=== PATIENT | female | born 1960 | race Caucasian/White ===

== ENCOUNTER 2017-07-09 12:04 | Observation (INO) | payer OTHER ==
[2017-07-09 14:00] VITALS: BMI 34.0
[2017-07-09 14:44] LABS: Troponin I Less than 0.010 ng/mL (< 0.028)
[2017-07-09] MEDS ORDERED: Acetaminophen 325 MG TAB PO PRN (16:15)
[2017-07-09] MEDS ORDERED: Enoxaparin Sodium 40 MG/0.4 ML SYRINGE SC SCH (16:15)
[2017-07-09] MEDS ORDERED: Ondansetron ODT 4 MG TAB PO PRN (16:15)
[2017-07-09] MEDS ORDERED: HYDROcodone/Acetaminophen 10/325 mg Tablet PO PRN (16:15)
[2017-07-09] MEDS ORDERED: HYDROcodone/Acetaminophen 5/325 mg Tablet PO PRN (16:15)
[2017-07-09 17:29] LABS: Troponin I Less than 0.010 ng/mL (< 0.028)
[2017-07-09] MEDS ORDERED: Communication Order-Pharmacy FS SCH (19:00)
[2017-07-09] MEDS: Famotidine 20 MG TAB PO SCH (20:01)
[2017-07-09] MEDS: Carvedilol 3.125 MG TAB PO SCH (20:02)
[2017-07-09] MEDS ORDERED: Clopidogrel Bisulfate 75 MG TAB PO SCH (21:00)
[2017-07-09] MEDS ORDERED: Levothyroxine Sodium 125 MCG TAB PO SCH (21:00)
[2017-07-09] MEDS ORDERED: Doxylamine 25 MG TAB PO SCH (21:00)
[2017-07-09] MEDS: Nitroglycerin 2% Ointment 1 INCH/1 GM Packet TOP SCH (22:06)
--- NOTE | 2017-07-10 00:08 | CON ---
DATE OF ADMISSION: 07/09/2017 DATE OF CONSULTATION: 07/09/2017 INDICATION FOR CONSULTATION: A 56-year-old female with history of known coronary artery disease and multiple stents placed back from 1996 in the right coronary artery as well as left circumflex. She h as had myocardial infarction in the past. Recently, she has been noticing increased frequency of chely st pain, which has been relieved by nitroglycerin for the most part. Yesterday, during the night, trudy caro had chest pain. She also had nausea, vomiting, and diarrhea. She had left arm pain, left neck laisha n. She took nitroglycerin with some relief, but still continued to have pain, presented to the emerg ency room at [facility] and was evaluated there. Cardiac enzymes are unremarkable. EKG did not show any acute changes. She was transferred to our facility since her kosher inspector is here and I be lieve her insurance in this hospital. At this time, she is pain free. She also said last night, she had a near syncopal episode after having the nausea, vomiting, diarrhea, and chest discomfort. Prev iously, her last cardiac catheterization was here in 08/2015, which showed plaque in left main, left anterior descending artery had 30% proximal stenosis, diagonal branches 50% stenosis of first and sec ond obtuse marginal branches 75%,ostial stenosis was less than 2 mm in diameter, and the third obtuse marginal branch with 30% to 40% stenosis. She had multiple stents in the right coronary for the pr oximal and distal areas. She also had a stent placed in the left circumflex. Ejection fraction was 60% to 65%. Otherwise, she has been taking her medications that she has been doing otherwise relativ mary well. She has hypertension, hypercholesterolemia. She also has a remote history of tobacco abus e and no longer smokes. PAST MEDICAL AND SURGICAL HISTORY: Significant for coronary artery disease as noted above with stent s to the left circumflex and right coronary artery myocardial infarction. She has hypothyroidism. S he has had a gastric sleeve procedure in 09/2015. She had a hysterectomy, appendectomy, tonsils, des noidectomy, history of anxiety. SOCIAL HISTORY: She is . She stopped smoking in the past. She has children who are alive an d well. FAMILY HISTORY: Noncontributory. ALLERGIES: She is allergic to CLINDAMYCIN, PENICILLIN, SULFONAMIDES. MEDICATIONS: Tylenol, Elavil, aspirin, Coreg, Plavix, Unisom, Lovenox subcutaneous, Pepcid 20 mg b.i .d., Imdur, levothyroxine, nitroglycerin paste, and Ranexa as well as Crestor. REVIEW OF SYSTEMS: She recently had an upper respiratory tract infection, she has recovered from thi s. She complains of nausea, vomiting, diarrhea. Otherwise, a 12-point review of systems is unremark able except what was noted in the history of present illness. PHYSICAL EXAMINATION: GENERAL: Reveals a well-developed, well-nourished female, in no acute distress. VITAL SIGNS: Blood pressure 106/56, heart rate 63 and regular, respiratory rate 16, O2 saturation 97 %. HEENT: Shows head to be normocephalic and atraumatic. Carotid pulses are present. There were no br uits noted. No JVD. The thyroid is not enlarged. Oral mucosa was pink and moist. CHEST: Clear to auscultation with no rales, rhonchi, or wheezing. CARDIOVASCULAR: Reveals a regular rate and rhythm. There is a normal S1, S2. There is no significa nt S3, S4 noted. She has a very soft systolic murmur in the lower sternal border, most likely compat ible with some mild tricuspid valve regurgitation. ABDOMEN: Shows obesity with positive bowel sounds. No organomegaly or masses are noted. Femoral pu lses are present. EXTREMITIES: Showed no clubbing, cyanosis, or edema. Pedal pulses are also present. NEUROLOGIC: She appears to be fully intact. SKIN: Warm and dry. LABORATORY AND DIAGNOSTIC DATA: Her EKG shows normal sinus rhythm with no acute findings. She does have evidence of a possible old inferior myocardial infarction with T-wave inversions, but no other a cute changes were noted. Her troponin Is have been negative. Her creatinine 0.78. Blood sugar was 130, hemoglobin 13.4, potassium was 4.2. IMPRESSION: 1. Unstable angina type symptoms in a 56-year-old female with known coronary artery disease who has undergone multiple angioplasties and stent placements in the past. It would be best to proceed her c ase to undergo repeat cardiac catheterization for evaluation of the stents and to rule out evidence o f progression of coronary artery disease. I did explain the procedure and the risks to her to includ e bleeding, infection, possibly a myocardial infarction, cerebrovascular accident, renal insufficienc y, allergic contrast reaction, and even the possibility of . She understands and agrees to proc eed. We will plan for cardiac catheterization tomorrow morning. 2. History of hypertension. This is under very good control at this time. We actually had to decre ase her medications in the past due to hypotension. At this time, we may need to further addresses m edications, may need to decrease the dose of her Imdur or her Coreg further. 3. Obesity. She has undergone a gastric sleeve procedure. She has lost about 70 pounds I think but she has gained back few she said, about 20 pounds she has gained back, so overall, she has been doin g quite well. 4. Hypercholesterolemia. Her last laboratory data shows LDL level not to be significantly elevated, but is still not under the suggested range of 70 for the LDL. Further care of the patient suggestio ns will be determined after we review the cardiac catheterization tomorrow.
[2017-07-10 01:04] LABS: Troponin I Less than 0.010 ng/mL (< 0.028)
[2017-07-10] MEDS: Famotidine 20 MG TAB PO SCH (05:22)
[2017-07-10] MEDS: Carvedilol 3.125 MG TAB PO SCH (05:22)
[2017-07-10] MEDS: Nitroglycerin 2% Ointment 1 INCH/1 GM Packet TOP SCH ×3 (05:22→14:45)
[2017-07-10 05:38] LABS: #Eosinphils 0.2 thou/uL (0.0-0.7); #Lymphocytes 1.1 thou/uL (1.20-3.40); #Monocytes 0.3 thou/uL (0.11-0.59); #Neutrophils 3.6 thou/uL (1.40-6.50); %Basophils 0.5 % (0.0-1.0); %Eosinophils 3.3 % (0.0-10.0); %Lymphocytes 21.2 % (21.0-51.0); %Monocytes 5.7 % (0.0-10.0); Mean Platelet Volume 8.1 fL (7.4-10.4); Red Blood Cell (RBC) Count 3.85 mill/uL (4.20-5.40); White Blood Cell (WBC) Count 5.2 thou/uL (4.8-10.8)
[2017-07-10 06:24] LABS: Anion Gap 12 mmol/L (10-20); BUN (Urea Nitrogen) 9 mg/dL (9.8-20.1); Calc. Creatinine Clearance 128 mL/min (70-130); Calcium 8.3 mg/dL (7.8-10.44); Carbon Dioxide 20 mmol/L (22-29); Chloride 111 mmol/L (98-107); Estimated GFR-MDRD 83
[2017-07-10] MEDS ORDERED: Heparin 1000 UNIT/NS 500ML(OR) 500 ML ONE ×2 (06:46→08:41)
[2017-07-10] MEDS ORDERED: Nitroglycerin 100MG/250ML BOT 250 ML ONE (07:22)
[2017-07-10] MEDS ORDERED: Heparin 10,000 UNITS/1 ML VIAL ONE (07:22)
[2017-07-10] MEDS ORDERED: Verapamil 5 MG/2 ML VIAL ONE (07:22)
[2017-07-10] MEDS ORDERED: Midazolam HCl 2 mg/2 ml Vial ONE ×3 (07:33→09:00)
[2017-07-10] MEDS ORDERED: Bivalirudin 250 MG VIAL ONE ×2 (08:06→09:00)
[2017-07-10] MEDS ORDERED: Clopidogrel Bisulfate 300 MG TAB ONE (08:06)
[2017-07-10] MEDS ORDERED: Fentanyl 100 MCG/2 ML VIAL ONE (08:06)
[2017-07-10 08:56] LABS: Troponin I Less than 0.010 ng/mL (< 0.028)
[2017-07-10] MEDS ORDERED: Aspirin 325 MG TAB PO SCH (09:00)
[2017-07-10] MEDS ORDERED: Nitroglycerin 0.4 MG TAB (25 Tab Bottle) SL PRN (09:41)
[2017-07-10] MEDS ORDERED: Sodium Chloride 0.9% 200 ML IV SCH (09:41)
[2017-07-10] MEDS ORDERED: Acetaminophen/Codeine 30-300mg Tablet PO PRN ×2 (09:41)
[2017-07-10] MEDS ORDERED: traMADol HCl 50 MG TAB PO PRN (09:41)
--- NOTE | 2017-07-10 10:41 | PDOC.PN ---
- Subjective Encounter Start Date: 07/10/17 Encounter Start Time: 10:20 -: old records requested/rev Pt seen, case discussed with both Dr Tee and Dr Gross. Pt seen by Dr aJckson last evening, biomarkers remain negative. Pt taken to the paving and surfacing labourer this morning, had a tight ostial lesion on the RCA, and diffuse LAD disease and some diffuse disease at the RCA distal bifurcation. Shes had asked Dr Gross to consult. I have spoken with him, and he prefers to hold plavix, conitnue baby ASA and do surgery next week sometime. Will defer to us whether she stay shere or goes home first. No F/c, [place] N/V/D/c, no cough. no EKG changes with pain while in the paving and surfacing labourer. Pt only complaining of back pain and hunger at present 10 point ROS performed and neg for all except as per HPI - Objective Resuscitation Status: Resuscitation Status FULL:Full Resuscitation MAR Reviewed: Yes Vital Signs & Weight: Vital Signs (12 hours) Temp Pulse Resp BP Pulse Ox 07/10/17 09:58 98.0 F 62 16 07/10/17 09:25 98.0 F 62 16 130/63 98 07/10/17 05:25 98.8 F 65 18 125/68 95 07/09/17 23:12 98.6 F 61 14 117/64 95 Weight Weight 210 lb 11.2 oz I&O: 07/09/17 07/10/17 07/11/17 06:59 06:59 06:59 Intake Total 240 Balance 240 Result Diagrams: 07/10/17 05:22 07/10/17 05:22 Radiology Reviewed by me: Yes EKG Reviewed by me: Yes Phys Exam - Physical Examination Constitutional: NAD HEENT: PERRLA, moist MMs, sclera anicteric, oral pharynx no lesions Neck: no nodes, no JVD, supple, full ROM Respiratory: no wheezing, no rales, no rhonchi, clear to auscultation bilateral Cardiovascular: RRR, no significant murmur, no rub Gastrointestinal: soft, non-tender, no distention, positive bowel sounds Musculoskeletal: no edema, pulses present Neurological: non-focal, normal sensation, moves all 4 limbs Lymphatic: no nodes Psychiatric: normal affect, A&O x 3 Skin: no rash, normal turgor, cap refill <2 seconds Dx/Plan (1) ACS (acute coronary syndrome) Code(s): I24.9 - ACUTE ISCHEMIC HEART DISEASE, UNSPECIFIED Status: Acute Comment: diffuse multivessel disease. No urgent need for CABG. Will feed, hold plavix, followup on cardiology and CT surgery recommendations (2) HTN (hypertension) Code(s): I10 - ESSENTIAL (PRIMARY) HYPERTENSION Status: Acute Qualifiers: Hypertension type: essential hypertension Qualified Code(s): I10 - Essential (primary) hypertension (3) Hypothyroid Code(s): E03.9 - HYPOTHYROIDISM, UNSPECIFIED Status: Acute Qualifiers: Hypothyroidism type: acquired Qualified Code(s): E03.9 - Hypothyroidism, unspecified (4) Fatigue Code(s): R53.83 - OTHER FATIGUE Status: Acute Qualifiers: Fatigue type: other Qualified Code(s): R53.83 - Other fatigue (5) HLD (hyperlipidemia) Code(s): E78.5 - HYPERLIPIDEMIA, UNSPECIFIED Status: Acute Qualifiers: Hyperlipidemia type: unspecified Qualified Code(s): E78.5 - Hyperlipidemia , unspecified (6) Coronary artery disease Code(s): I25.10 - ATHSCL HEART DISEASE OF [place] CORONARY ARTERY W/O ANG PCTRS Status: Acute Qualifiers: Coronary Disease-Associated Artery/Lesion type: [place] artery [place] vs. transplanted heart: [place] heart Associated angina: with unstable angina Qualified Code(s): I25.110 - Atherosclerotic heart disease of [place] coronary artery with unstable angina pectoris - Plan cont current plan of care, plan discussed w/ family * .
[2017-07-10] MEDS ORDERED: Morphine PF 1 MG/ML SYR IVP PRN (10:51)
[2017-07-10 11:24] VITALS: BP 145/67; TEMP 98.4
--- NOTE | 2017-07-10 13:11 | HP ---
DATE OF ADMISSION: 07/09/2017 TIME OF SERVICE: 16:23 CHIEF COMPLAINT: Chest pain and weakness. HISTORY OF PRESENT ILLNESS: Ms. Bauer is a pleasant 56-year-old female with history of coronary art [place]il[place] disease with extensive percutaneous interventions, hypertension, hypothyroidism, and hyperlipidem ia. She presented to an outside Emergency Department via EMS with complaints of chest pain and extre me fatigue. She states that the pain initially started in the sternal area which is fairly typical. At this time , though it extended up into her left neck and arm which is not typical for previous heart issues. S he took nitroglycerin sublingual x1 which seemed to help and she was able to go to sleep again. This started sometime around 10:30 or 11:00 p.m. at night on 07/08/2017. She woke up again around 3 a.m. with more chest pain. She had 3 episodes of diarrhea in the precedin g 24 hours, but had increasing fatigue and malaise for about 2-3 days prior to presentation. Startin g around 3 a.m., she felt extensively more fatigued and was concerned that she might be having anothe r heart problem. So she decided to come to the Emergency Department for evaluation. She was given a nother sublingual nitroglycerin which almost completely raised her pain. On arrival there at [facility], she had a negative EKG by report and negative biomarkers. She was subsequently transferred here because her implementation coordinator is to see her. On arrival to our floor, she is still having some dull aching in her chest. She denies any palpitati ons, nausea or vomiting at present. She has had no recent diarrhea. No sweats. PAST MEDICAL HISTORY: 1. Hypothyroidism. 2. Hypertension. 3. Coronary artery disease. 4. Hyperlipidemia. PAST SURGICAL HISTORY: Include, 1. Gastric sleeve procedure in 09/[address] Yañez. 2. Achilles tendon repair 07/2015 with a fall and reinjury and subsequent repair in 08/2015. 3. TAHBSO and appendectomy in 1980. HOME MEDICATIONS: 1. Aspirin 81 mg daily. 2. Amitriptyline 150 mg p.o. at bedtime. 3. Coreg 3.125 mg p.o. b.i.d. 4. Plavix 75 mg daily. 5. Doxylamine 25 mg as needed. 6. Isosorbide mononitrate 30 mg p.o. daily. 7. Ranexa 500 mg daily. 8. Levothyroxine 125 mcg daily. 9. Ibuprofen as needed. 10. Pseudoephedrine as needed. 11. Amlodipine 5 mg p.o. daily. ALLERGIES: SULFA causes a rash. PENICILLIN causes a rash as a child. Last echocardiogram, I think was around two years ago. She has been seeing an outside implementation coordinator priscilla holliday at [facility] and he wants to put a special bifurcated stent into her distal bifurcation of her RCA, however, she has been unable to follow up with him and has been seeing Dr. Jackson instead. FAMILY HISTORY: Dad at age 30 from a heart attack. Her mom is alive at 77 with only hypertensi on. She has a sister who is alive and well. 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 Her sister is a nurs e at [employer] here in [place]. Her sister name is Tahmina Hanks and is her medical d ecision maker should patient become unable to. We discussed advanced directives and she has no forma l document, does wish to be a FULL CODE. She is a former tobacco user. Quit smoking 15 years ago after an approximately 33-[id number] history and one pack per day for 30 years. She has no alcohol, no IV drugs. REVIEW OF SYSTEMS: A 10-point review of systems was performed, negative for all other systems except as stated as per HPI. PHYSICAL EXAMINATION: VITAL SIGNS: Temperature 98.6, pulse 61, blood pressure 117/64, respiratory rate 14, satting 95% on room air. GENERAL: She is awake. She is alert. She is oriented x3. She is a well-developed, obese white fem herminia, appears in no acute distress. HEENT: Normocephalic, atraumatic. Pupils are equal and reactive bilaterally. Mucous membranes are moist without visible lesions or thrush. NECK: Supple. She has no lymphadenopathy, no JVD, no thyromegaly. LUNGS: Clear to auscultation bilaterally without wheezes, rales or rhonchi. CARDIOVASCULAR: Normal S1 and S2. There is no S3 or S4. There are no murmurs, no rubs. ABDOMEN: Soft, is obese, is nontender, nondistended. She has no masses or organomegaly. Prior surg ical incisions are well healed. EXTREMITIES: Showed no cyanosis, no clubbing. She has trace bipedal edema. It is nonpitting. SKIN: Warm, moist, and well perfused. No rashes, lesions or varicosities. MUSCULOSKELETAL: Exam shows shoulders, hips, elbows and knees to be normal to inspection. She has n o crepitus. She has no palpable joint effusions and no erythema or tenderness. NEUROLOGIC: Cranial nerves II-XII are grossly intact. She has no focal neurologic deficit. Normal speech pattern and 5/5 strength in all 4 extremities. Reflexes were not tested. LABORATORY DATA AND IMAGING: Laboratory evaluation from outside facility showed normal CMP. Creatin ine 0.78, white blood cell count 6.7, hemoglobin 13.4, hematocrit of 41.6, platelet count 238,000 and a normal differential. Troponin I was 0.00. Chest x-ray showed no acute cardiopulmonary disease. ASSESSMENT AND PLAN: 1. Chest pain: Patient does have a history of coronary disease. She tells me in passing that prior stress test has not caught any significant coronary lesion that she subsequently had stented. We wi ll ask Dr. Jackson to evaluate the patient in the morning, we will get serial cardiac biomarkers, place her on nitro paste, continue beta reba, continuous oxygen, and aspirin 325 mg daily. We will foll ow by Cardiology recommendations. 2. Hypothyroidism: We will continue levothyroxine. 3. Essential hypertension. We will continue home medications. 4. History of coronary artery disease as above. 5. Hyperlipidemia. Patient is not on any mention of antihyperlipidemic. Would likely to be on some kind of Lipitor in the near future. 6. Malaise/fatigue: Etiology is not clear. We will continue to hydrate her overnight gently and we will get echocardiogram and we will also recheck labs in the morning.
--- NOTE | 2017-07-10 16:50 | DIS ---
DATE OF ADMISSION: 07/09/2017 DATE OF DISCHARGE: 07/10/2017 PRIMARY CARE PHYSICIAN: Korey Layton M.D. DISCHARGE DIAGNOSES: 1. Acute coronary syndrome. 2. Diffuse multivessel coronary artery disease with unstable angina. 3. Hypertension. 4. Hyperlipidemia. 5. Obesity. 6. Malaise and fatigue. 7. Hypothyroidism. CONSULTATIONS: 1. Dr. Jackson with Cardiology. 2. Dr. Gross with Cardiothoracic Surgery. PROCEDURES: 1. Percutaneous transluminal coronary angiography which showed diffuse multivessel disease including a right coronary OM2 ostial lesion, diffuse distal RCA disease of the bifurcation, some circumflex d isease and diffuse LAD disease. HOSPITAL COURSE: Ms. Bauer is a 56-year-old female whom I placed in observation yesterday. She pre sented to an outside Emergency Department with complaints of chest discomfort and fatigue. She was t ransferred here to see her Cardiology team. HOSPITAL COURSE: The patient was seen and examined. On admission, she was placed in observation sta tus, serial cardiac biomarkers were obtained, which were negative, Cardiology saw her and took her fo r cardiac catheterization this morning which showed diffuse disease, not amenable to percutaneous int ervention and the OM2 lesion could not be accessed with a normal catheter. Subsequently, Cardiothora cic Surgery was consulted. Dr. Gross did see the patient, but with negative biomarkers and negative EKG changes, felt she would benefit from being off her Plavix for a full week before surgery and so red her for discharge if okay with Cardiology, off of Plavix and on baby aspirin only until next week when she can be admitted preoperative for her bypass surgery. The patient was transitioned from nitro paste to nitroglycerin transdermal 0.2 mg per hour patch on 2 and off 12 and home medications, was otherwise stable for discharge and cleared by Cardiology. PHYSICAL EXAMINATION: The patient was seen and examined on the day of discharge. DISCHARGE PLAN AND DISPOSITION: Discussed with the patient and family face to face at the bedside. DISCHARGE MEDICATIONS: 1. Amitriptyline 150 mg p.o. at bedtime. 2. Aspirin 81 mg daily. 3. Carvedilol 3.125 mg p.o. b.i.d. 4. Doxylamine 50 mg p.o. at bedtime p.r.n. 5. Isosorbide mononitrate 30 mg p.o. at bedtime. 6. Levothyroxine 125 mcg daily. 7. Nitrostat 0.4 mg sublingual every 5 minutes p.r.n. chest pain. 8. Nitro-Dur patch 0.2 mg transdermal on 12, off 12, change daily. 9. Ranexa 500 mg p.o. at bedtime. 10. Crestor 20 mg p.o. at bedtime. The patient was instructed to stop her Plavix. FOLLOWUP APPOINTMENTS: 1. Dr. Jackson as needed. 2. Primary care physician next available. 3. The patient is to return to the hospital next per Dr. Gross scheduling preoperative for her coronary artery bypass grafting. The patient understands that she may need to come back the nigh t before to get ready otherwise. DISCHARGE DIET: Heart healthy. DISCHARGE ACTIVITY: Per cardiopulmonary limits. The patient was cautioned to do minimal activity an d no exertional activity until she returns. Instructions to return to the emergency department immed iately for increased uncontrolled chest pain.
[2017-07-10] MEDS ORDERED: Iopamidol 370 76% 100 ML VIAL ONE (17:29)
[2017-07-10] MEDS ORDERED: Iopamidol 370 76% 50 ML VIAL FS ONE (17:29)
--- NOTE | 2017-07-10 18:18 | CON ---
DATE OF CONSULTATION: 07/10/2017 HISTORY OF PRESENT ILLNESS: This is a 56-year-old female with a history of multiple coronary stentin g procedures done out of state on occasion as well as by Dr. Ferreira and more recently by Dr. Jackson. S he had some chest pain prompting admission through the emergency room at [facility] and being transferred to [facility]. She was found to have negative cardiac enzymes and her E KG showed no changes. She underwent cardiac catheterization today demonstrating in-stent stenosis in a right coronary artery that has basically been stented from ostium to just above the bifurcation. The patient also had some moderate circumflex disease prior to a bifurcating OM system with the proxi mal branch may be having some mild disease. LAD had no disease of note. Left ventricular systolic f unction was felt to be preserved. PAST MEDICAL HISTORY: Significant for hypertension and dyslipidemia, which have both been well treat ed. She also has a history of hypothyroidism. PAST SURGICAL HISTORY: Includes a gastric sleeve by Dr. Yañez in 2016 as well as previous hysterec uzair, appendectomy, and tonsillectomy. SOCIAL HISTORY: She is a nonsmoker at present time. She is and accompanied by her a nd has children. 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 ALLERGIES: CLINDAMYCIN, PENICILLIN, and SULFONAMIDES. MEDICATIONS: Include, Plavix 75 mg a day, which has been a long-term, Ranexa 500 at bedtime, Crestor 20 at bedtime, isosorbide 30 at bedtime, Elavil 150 at bedtime, aspirin 81, levothyroxine 125 mcg p. o. at bedtime, and Coreg 3.125 b.i.d. PHYSICAL EXAMINATION: GENERAL: Alert, cooperative lady. VITAL SIGNS: Height 5 foot 6, weight 210 pounds. NECK: No carotid bruits. LUNGS: Clear to auscultation anteriorly. CARDIAC: Regular rate and rhythm, no murmurs. ABDOMEN: Obese, nontender, soft. EXTREMITIES: She has palpable dorsalis pedis pulses bilaterally with no posterior tibial pulses. Sh e is right-arm dominant and has a good Dre's test in her left hand. PLAN: At this time is for coronary bypass grafting to the PDA and obtuse marginal system. Undecided at this time is whether to do one or both obtuse marginals. LAD needs no grafting. Informed consen t has been obtained and I have suggested stopping the Plavix for a week prior to intervention.
[2017-07-11] MEDS ORDERED: Aspirin 81 mg Enteric Coated Tablet PO SCH (09:00)
--- NOTE | 2017-07-14 08:40 | EKG ---
Test Reason : STAT Blood Pressure : / mmHG Vent. Rate : 066 BPM Atrial Rate : 066 BPM P-R Int : 158 ms QRS Dur : 098 ms QT Int : 412 ms P-R-T Axes : 029 067 -07 degrees QTc Int : 431 ms Normal sinus rhythm Cannot rule out Inferior infarct (cited on or before 21-AUG-2015) Abnormal ECG When compared with ECG of 21-AUG-2015 21:42, Premature ventricular complexes are no longer Present QT has shortened Confirmed by Ori THIBODEAUX ([id number]) on 07/14/2017 8:40:10 AM Referred By: MORELIA Confirmed By:Ori THIBODEAUX
== END 2017-07-10 15:40 | disposition home or self-care (01) ==
LOC: 2SW 13:29 → INTOOBSV 13:29
PROVIDERS: ADMIT Internal Medicine Infectious Disease; ATTEND Internal Medicine Infectious Disease
DX: I24.9 Acute ischemic heart disease, unspecified (principal); I25.10 Atherosclerotic heart disease of native coronary artery without angina pectoris; I10 Essential (primary) hypertension; E78.5 Hyperlipidemia, unspecified; E03.9 Hypothyroidism, unspecified; R53.81 Other malaise; E66.9 Obesity, unspecified; Z68.34 Body mass index [BMI] 34.0-34.9, adult; Z88.2 Allergy status to sulfonamides; Z88.1 Allergy status to other antibiotic agents; Z88.0 Allergy status to penicillin; Z79.82 Long term (current) use of aspirin; Z79.899 Other long term (current) drug therapy; Z98.84 Bariatric surgery status; Z90.49 Acquired absence of other specified parts of digestive tract; Z98.890 Other specified postprocedural states
CPT/HCPCS: 36415; 80048; 82553; 84484; 85025; 90471; 90732; 93005; 93010; 93458; 96372; 99152; 99153; C1769; C1887; G0009; G0378; J0583; J1644; J1650; J2250; J2270; J3010

== ENCOUNTER 2017-07-18 08:12 | Inpatient (IN) | payer OTHER ==
[2017-07-18] MEDS ORDERED: Heparin 10,000 UNITS/1 ML VIAL 30,000 UNITS in Sodium Chloride 0.9% 1,000 ML FS SCH (08:30)
[2017-07-18] MEDS ORDERED: Levofloxacin 500 mg/D5W 100 ml Premix Bag ONE (09:11)
[2017-07-18] MEDS ORDERED: Midazolam HCl 2 mg/2 ml Vial ONE (11:08)
[2017-07-18] MEDS ORDERED: Fentanyl 250 MCG/5 ML VIAL ONE (12:00)
[2017-07-18] MEDS ORDERED: Midazolam HCl 5 mg/5 ml Vial ONE (12:00)
[2017-07-18] MEDS ORDERED: Mag-Al 1200 mg/1200 mg/30 ML UDCUP PO PRN (15:29)
[2017-07-18] MEDS ORDERED: Hetastarch 6% 500 ML 500 ML IVPB PRN (15:29)
[2017-07-18] MEDS ORDERED: Bisacodyl 5 MG TAB PO PRN (15:29)
[2017-07-18] MEDS ORDERED: Bisacodyl 10 MG SUPP PR PRN (15:29)
[2017-07-18] MEDS ORDERED: niCARdipine HCl 25 MG in Sodium Chloride 0.9% 250 ML 240 ML IVPB PRN (15:29)
[2017-07-18] MEDS ORDERED: Post-Op Insulin Drip Protocol IVPB ONE (15:29)
[2017-07-18] MEDS ORDERED: Fentanyl 100 MCG/2 ML VIAL SLOW IVP PRN ×2 (15:29)
[2017-07-18] MEDS ORDERED: Phenylephrine 10 MG/NS 250 ML 250 ML IVPB PRN (15:29)
[2017-07-18] MEDS ORDERED: Potassium Chloride 20 MEQ/100 ML PREMIX BAG IVPB PRN (15:29)
[2017-07-18] MEDS ORDERED: Nitroglycerin 50 MG/250 ML BOT 250 ML IVPB PRN (15:29)
[2017-07-18] MEDS ORDERED: DOPamine 400 MG/D5W 250 ML 250 ML IVPB PRN (15:29)
[2017-07-18] MEDS ORDERED: Acetaminophen 325 MG TAB PO PRN (15:29)
[2017-07-18] MEDS ORDERED: hydrALAZINE 20 MG/ML VIAL SLOW IVP PRN (15:29)
[2017-07-18] MEDS ORDERED: Guaifenesin DM 100-10/5 ML UDCUP PO PRN (15:29)
[2017-07-18] MEDS ORDERED: Dextrose 50% Abboject 50 ML SYRINGE SLOW IVP PRN (15:42)
[2017-07-18] MEDS ORDERED: Insulin Regular 300 UNITS/3 ML VIAL SC PRN (15:42)
[2017-07-18] MEDS ORDERED: Dextrose 5% in Water 1,000 ML IV PRN (15:42)
[2017-07-18] MEDS ORDERED: Magnesium 2 GM/NS 0.9% 100 ML 2 GM in Premix Bag 1 BAG IVPB SCH (15:45)
[2017-07-18] MEDS: Morphine 4 MG/ML VIAL SLOW IVP PRN ×2 (15:45→16:00)
[2017-07-18 15:49] LABS: #Eosinphils 0.2 thou/uL (0.0-0.7); #Lymphocytes 2.6 thou/uL (1.20-3.40); #Monocytes 0.5 thou/uL (0.11-0.59); #Neutrophils 12.9 thou/uL (1.40-6.50); %Basophils 0.1 % (0.0-1.0); %Eosinophils 1.3 % (0.0-10.0); %Lymphocytes 16.1 % (21.0-51.0); %Monocytes 2.9 % (0.0-10.0); Hematocrit 31.5 % (36.0-47.0); Mean Platelet Volume 7.9 fL (7.4-10.4); Oxyhemoglobin 98.3 % (94.0-97.0); Red Blood Cell (RBC) Count 3.32 mill/uL (4.20-5.40); Sodium 141 mmol/L (135-148); White Blood Cell (WBC) Count 16.2 thou/uL (4.8-10.8)
[2017-07-18] MEDS: Sodium Chloride 0.9% 1,000 ML IV SCH (15:49)
[2017-07-18 15:51] LABS: Mechanical Tidal Volume 600 ml; Vent YES
[2017-07-18 15:52] LABS: Mode SIMV; Pressure Support 10 cmH2O
[2017-07-18] MEDS ORDERED: Propofol 200 MG/20 ML VIAL ONE (15:54)
[2017-07-18] MEDS ORDERED: Ondansetron HCl/PF 4 MG/2 ML Vial ONE (15:54)
[2017-07-18] MEDS ORDERED: Protamine Sulfate 250 MG/25 ML VIAL ONE (15:54)
[2017-07-18] MEDS ORDERED: Heparin 30,000 units/30 ml VIAL ONE (15:54)
[2017-07-18] MEDS ORDERED: Aminocaproic Acid 5 GM/20 ML VIAL ONE (15:54)
[2017-07-18] MEDS ORDERED: PHENYLEPHRINE-NS 100 MCG/ML 10 ML SYRINGE ONE (15:54)
[2017-07-18 15:56] LABS: PTT 31.6 SEC (22.9-36.1); Prothrombin Time 16.2 SEC (12.0-14.7)
--- NOTE | 2017-07-18 15:58 | RAD ---
PORTABLE CHEST: History: Post op sternotomy. FINDINGS: ET tube is in place with tip above the laure. Post-operative sternotomy changes. Central line has ti p overlying the right atrium. Lungs are well aerated and clear. IMPRESSION: Post-operative changes. The lung galvez appear clear. POS: [facility]
[2017-07-18 16:11] LABS: Anion Gap 10 mmol/L (10-20); BUN (Urea Nitrogen) 12 mg/dL (9.8-20.1); Calc. Creatinine Clearance 133 mL/min (70-130); Calcium 8.1 mg/dL (7.8-10.44); Carbon Dioxide 23 mmol/L (22-29); Chloride 111 mmol/L (98-107); Estimated GFR-MDRD Greater than 90
[2017-07-18] MEDS: Ketorolac Tromethamine 30 MG/ML VIAL IVP SCH ×2 (16:21→22:49)
[2017-07-18 17:33] VITALS: BMI 29.3
--- NOTE | 2017-07-18 18:15 | OP ---
PREOPERATIVE DIAGNOSIS: Coronary artery disease. POSTOPERATIVE DIAGNOSIS: Coronary artery disease. PROCEDURE: Coronary artery bypass graft x3, saphenous vein to a right PDA 1.5 mm, OM1 1.5-2 mm, OM2 1.5 mm. SURGEON: Korey Grsos M.D. JOB CHANGE CREW MEMBER: Dr. Cobos. TRANSFUSION: None. PROCEDURE IN DETAIL: After adequate anesthesia had been obtained, the patient was prepped and draped . I performed an endovascular vein harvest on the left greater saphenous vein. Following completion of this, a median sternotomy was performed while Dr. Cobos ligated the branches on the saphenous vei n. The pericardium was opened, traction sutures placed, aorta and right atrium were cannulated and c ardiopulmonary bypass was instituted after heparin had been checked with an ACT level of greater than 400 seconds. Vessels were inspected for grafting, cross-clamp applied. A liter of [place] cardiop legic solution was given. Following this, the vessels were opened individually and end-to-side anast omosis completed. Following this, a partial occluding clamp placed and 2 proximal anastomoses were p erformed on the aortic root to the OM1 graft and to the right PDA graft. The partial occluding clamp was then removed and those grafts were marked with a ring, following which the OM2 graft was anastom osed to the side of the OM1 graft about 2.5 cm from the aortic root. Following completion of this, t he patient was weaned from cardiopulmonary bypass. Cannulas were removed and protamine was given sys temically. The aortic cannulation site was reinforced with a 4-0 Prolene suture. Two mediastinal dr matiasns were placed following which the sternum was reapproximated with #7 interrupted wire using vancom ycin paste on the sternal edges, platelet-enriched blood, and platelet-poor plasma. The patient is t o be taken to the ICU in guarded condition.
[2017-07-18] MEDS: Ondansetron HCl/PF 4 MG/2 ML Vial IVP PRN (18:34)
[2017-07-18] MEDS: HYDROmorphone 0.5 MG/0.5 ML SYRINGE SLOW IVP PRN ×2 (19:23→20:52)
[2017-07-18] MEDS ORDERED: HYDROmorphone 0.5 MG/0.5 ML SYRINGE SLOW IVP PRN (20:49)
[2017-07-18] MEDS ORDERED: Famotidine/PF 20 mg/2ml Vial SLOW IVP SCH (21:00)
--- NOTE | 2017-07-18 21:36 | CON ---
DATE OF SERVICE: 07/18/2017 SERVICE: Pulmonary Medicine. REASON FOR CONSULTATION: Respiratory failure. HISTORY OF PRESENT ILLNESS: The patient is a 56-year-old white female with past medical history sign ificant for coronary artery disease. She underwent cardiac catheterization on the of this month and was discovered to have severe disease. She required a coronary artery bypass graft. She return ed to the hospital for an elective outpatient procedure. She is postop day #0 from a coronary artery bypass graft. She was hyperventilating. Because of her appearance, Pulmonary was consulted to dete rmine whether or not extubation could be considered. PAST MEDICAL HISTORY: 1. Coronary artery disease. 2. Hypertension. 3. Dyslipidemia. 4. Osteoarthritis. 5. Hypothyroidism. PAST SURGICAL HISTORY: 1. Total abdominal hysterectomy and bilateral salpingo-oophorectomy. 2. Intraoperative appendectomy. 3. Achilles tendon repair. 4. Cardiac catheterization. 5. Coronary artery bypass graft. SOCIAL HISTORY: She is a nurse at [employer]. She quit smoking 15 years ago, but has a [id number] history smoked prior to that. She denies alcohol or illicit drug use. FAMILY HISTORY: Noncontributory. ALLERGIES: SULFA, PENICILLIN. MEDICATIONS: List of her inpatient medications were reviewed. No specific updates were made at this time. REVIEW OF SYSTEMS: This could not be obtained as the patient is currently encephalopathic. PHYSICAL EXAMINATION: VITAL SIGNS: Afebrile, pulse 63, blood pressure 113/54, respirations 16, saturation 94% on 21% FiO2 and a PEEP of 5. HEENT: Normocephalic, atraumatic. Sclerae are white, conjunctivae pink. Oral and nasal mucosa is m oist without lesions. LUNGS: Excellent air entry. There is no prolonged expiratory phase or wheezing. HEART: Normal rate, regular. ABDOMEN: Soft, nontender, nondistended, bowel sounds positive. MUSCULOSKELETAL: No cyanosis or clubbing. There is no pitting in the bilateral lower extremities. NEUROLOGIC: Grossly nonfocal. She moves all 4 extremities spontaneously. Pupils are equal, round, and reactive. Gag and cough are intact. She is overbreathing the ventilator quite comfortably. GENITOURINARY: Rendon catheter in place. LABORATORY DATA: WBC 16.2, hemoglobin 10.4, platelets 241,000. INR 1.3. Basic metabolic profile is otherwise unremarkable. PH 7.42, pCO2 35, pO2 273. Just before extubation, her pH was 7.58 and her pCO2 was 19. She was encephalopathic and tachypneic at that time, but with a previous ABG, she was actually following some commands. Basic metabolic profile is completely unremarkable except for chlo ride of 111. Urinalysis is negative. IMAGING: Chest x-ray demonstrates no acute cardiopulmonary abnormality. Thoracostomy drains are in good position. There is a central line, endotracheal tube in good position. ASSESSMENT: 1. Respiratory alkalosis. 2. Metabolic encephalopathy secondary to #1. 3. Coronary artery bypass graft, postop day #0. 4. Chronic pain with narcotic use. PLAN: We will go ahead and extubate the patient and watch her very closely. She may very well requi re reintubation, but we will cross that bridge if we get there. My suspicion is that the tube is cau sing significant discomfort. This is likely causing her hyperventilation and encephalopathy. Once t he tube was removed, we will be able to better assess her neurologic state. Pulmonary and Critical C are will continue to follow. CRITICAL CARE TIME: 30 minutes.
[2017-07-18 21:37] LABS: Hematocrit 33.3 % (36.0-47.0)
[2017-07-19 04:20] LABS: #Eosinphils 0.1 thou/uL (0.0-0.7); #Lymphocytes 1.6 thou/uL (1.20-3.40); #Monocytes 0.6 thou/uL (0.11-0.59); #Neutrophils 5.9 thou/uL (1.40-6.50); %Basophils 0.4 % (0.0-1.0); %Eosinophils 1.2 % (0.0-10.0); %Lymphocytes 19.7 % (21.0-51.0); Hematocrit 29.8 % (36.0-47.0); Mean Platelet Volume 8.1 fL (7.4-10.4); Red Blood Cell (RBC) Count 3.11 mill/uL (4.20-5.40); White Blood Cell (WBC) Count 8.2 thou/uL (4.8-10.8)
[2017-07-19 04:32] LABS: Anion Gap 5 mmol/L (10-20); BUN (Urea Nitrogen) 11 mg/dL (9.8-20.1); Calc. Creatinine Clearance 128 mL/min (70-130); Calcium 7.7 mg/dL (7.8-10.44); Carbon Dioxide 26 mmol/L (22-29); Chloride 112 mmol/L (98-107); Estimated GFR-MDRD Greater than 90
[2017-07-19] MEDS: Ketorolac Tromethamine 30 MG/ML VIAL IVP SCH ×4 (05:18→23:00)
[2017-07-19] MEDS: HYDROcodone/Acetaminophen 5/325 mg Tablet PO PRN ×4 (06:02→22:27)
[2017-07-19] MEDS: Sodium Chloride 0.9% 1,000 ML IV SCH (06:10)
[2017-07-19] MEDS: Ondansetron HCl/PF 4 MG/2 ML Vial IVP PRN ×2 (07:35→19:29)
--- NOTE | 2017-07-19 08:54 | RAD ---
PORTABLE AP CHEST XRAY: DATE: 07/19/17. HISTORY: Postoperative surgery. COMPARISON: 07/18/17. FINDINGS: Endotracheal tube has been removed. The right subclavian central venous catheter is stable in positi on. Postop surgical changes related to CABG are noted. There is mild volume loss present at each edouard ng base. The lungs are otherwise clear and there is no pleural effusion or pneumothorax identified. No other interval change. IMPRESSION: 1. Interval removal of the endotracheal tube. 2. Mild bibasilar atelectasis, but the chest is otherwise stable. POS: [facility]
[2017-07-19] MEDS ORDERED: FLU VACC QS2017-18 36 mo. & older 0.5 ML SYRINGE IM ONE (09:00)
[2017-07-19] MEDS: Famotidine 20 MG TAB PO SCH ×2 (09:12→20:35)
[2017-07-19] MEDS: Clopidogrel Bisulfate 75 MG TAB PO SCH (14:17)
[2017-07-19] MEDS: Aspirin 325 MG TAB PO SCH (14:18)
--- NOTE | 2017-07-19 14:32 | PDOC.CTH ---
Cardiology Progress Note - Subjective Pt. seen and evaluated. No complaints but hypotensive requiring pressors. no other events overnight. - Objective Vital Signs Temp Pulse Resp Pulse Ox 07/19/17 11:46 91 L 07/19/17 08:00 97.8 F 72 17 95 07/19/17 07:00 97.8 F 07/19/17 04:00 98.5 F Weight 198 lb 3.129 oz 07/18/17 07/19/17 07/20/17 06:59 06:59 06:59 Intake Total 2388 650 Output Total 1915 175 Balance 473 475 - Physical Examination General/Neuro: alert & oriented x3 Neck: carotid US brisk Lungs: CTA Heart: RRR Abdomen: NT/ND - Labs Result Diagrams: 07/19/17 04:00 07/19/17 04:00 - Assessment/Plan 1. CAD: stable s/p CABG.resume coreg when BP allows. 2. HTN: now hypotensive.responding to fluids. 3. Dyslipdemia: resume statins. 4. Post-op anemia. reasonable. Review of Systems - Review of Systems Respiratory: reports: no symptoms reported Cardiac (ROS): reports: palpitations ABD/GI: reports: no symptoms reported : reports: no symptoms reported Musculoskeletal: reports: muscle stiffness Neurological: reports: no symptoms reported
[2017-07-19] MEDS: hydrOXYzine 25 MG TAB PO PRN (20:36)
--- NOTE | 2017-07-19 22:37 | PRG ---
DATE OF SERVICE: 07/19/2017 SERVICE: Pulmonary Medicine. INTERVAL HISTORY: The patient is doing well from a respiratory standpoint. She was started back on a little bit of phenylephrine overnight. Otherwise, there has been no interval change to her conditi on. Her mentation has cleared beautifully. She currently denies any significant nausea or vomiting. She is passing some gas but has not had any bowel movements. She continues to have appropriate chely st discomfort. PHYSICAL EXAMINATION: VITAL SIGNS: Afebrile, pulse 73, blood pressure 108/65, respirations 24, saturation 95% on 2 liters nasal cannula. GENERAL: The patient is awake and alert. She is in no apparent distress. LUNGS: Excellent air entry. There are some rhonchi present. She has a difficult time clearing them with cough at this time because of pain. HEART: Normal rate, regular. ABDOMEN: Soft, nontender, nondistended. Bowel sounds are hypoactive. MUSCULOSKELETAL: No cyanosis or clubbing. No pitting in the bilateral lower extremities. NEUROLOGIC: Grossly nonfocal. LABORATORY DATA: WBC 8.2, hemoglobin 9.7, platelets 226,000. INR 1.3. Basic metabolic profile is e ssentially unremarkable except for a stable chloride of 112. Calcium is also slightly low. IMAGING: Chest x-ray demonstrates good aeration in the bilateral lungs. There has been interval rem oval of the endotracheal tube. Thoracostomy drains are in good position. There is a central venous catheter which has not changed. ASSESSMENT: 1. Respiratory alkalosis, resolved. 2. Metabolic encephalopathy, resolved. 3. Coronary artery bypass graft, postoperative day #1. 4. Coronary artery disease. 5. Shock, cardiogenic. PLAN: We will continue to wean away the phenylephrine as tolerated. Oxygen will also be weaned away as tolerated. The patient will remain in the ICU for the next 24-48 hours most likely. Pulmonary w ill continue to follow while she remains in this location.
[2017-07-20] MEDS ORDERED: Phenylephrine 10 MG/NS 250 ML 250 ML IVPB SCH (00:30)
[2017-07-20] MEDS: HYDROcodone/Acetaminophen 5/325 mg Tablet PO PRN ×6 (03:18→19:55)
[2017-07-20 04:13] LABS: #Eosinphils 0.2 thou/uL (0.0-0.7); #Lymphocytes 1.9 thou/uL (1.20-3.40); #Monocytes 0.6 thou/uL (0.11-0.59); #Neutrophils 5.4 thou/uL (1.40-6.50); %Basophils 0.4 % (0.0-1.0); %Eosinophils 2.2 % (0.0-10.0); %Lymphocytes 23.1 % (21.0-51.0); %Monocytes 7.4 % (0.0-10.0); Mean Platelet Volume 8.1 fL (7.4-10.4); Red Blood Cell (RBC) Count 2.93 mill/uL (4.20-5.40)
[2017-07-20 04:24] LABS: Anion Gap 6 mmol/L (10-20); BUN (Urea Nitrogen) 8 mg/dL (9.8-20.1); Calc. Creatinine Clearance 143 mL/min (70-130); Calcium 8.1 mg/dL (7.8-10.44); Carbon Dioxide 24 mmol/L (22-29); Chloride 110 mmol/L (98-107); Estimated GFR-MDRD Greater than 90
[2017-07-20] MEDS: Ketorolac Tromethamine 30 MG/ML VIAL IVP SCH ×3 (05:34→17:49)
[2017-07-20] MEDS: hydrOXYzine 25 MG TAB PO PRN ×2 (07:19→19:55)
[2017-07-20] MEDS: Ondansetron HCl/PF 4 MG/2 ML Vial IVP PRN (07:20)
[2017-07-20] MEDS: Clopidogrel Bisulfate 75 MG TAB PO SCH (08:45)
[2017-07-20] MEDS: Aspirin 325 MG TAB PO SCH (08:45)
[2017-07-20] MEDS: Famotidine 20 MG TAB PO SCH ×2 (08:45→21:59)
--- NOTE | 2017-07-20 08:58 | RAD ---
PORTABLE CHEST: HISTORY: Respiratory distress. COMPARISON: Prior day's exam. FINDINGS: Heart size is enlarged. Postop sternotomy changes are again noted. Right subclavian line is unchang ed. Minimal subsegmental atelectatic changes are seen in the bases. IMPRESSION: Stable exam. POS: [facility]
--- NOTE | 2017-07-20 10:56 | PRG ---
DATE OF SERVICE: 07/20/2017 SUBJECTIVE: Ms. Bauer did well overnight. She has no new complaints today. She was pruritic last night without erythema. She has no rash today and says her pruritus is better after that. She does report SULFA, PENICILLIN, CLEOCIN allergy. She is on none of these antibiotics. OBJECTIVE: VITAL SIGNS: She is afebrile, blood pressure 110/43, heart rate 84, and respiratory rate 14. Intake and output positive 1109. Chest tube drainage 130 mL. Weight 193 pounds reported probably because it is with the bed scale. She has lost 5 pounds per bed scale weight, which is not accurate. LUNGS: Clear. HEART: Regular rhythm. ABDOMEN: Soft. EXTREMITIES: Warm. LABORATORY DATA: White count 8, hemoglobin 9.1, platelets 197. Sodium 136, potassium 4, chloride 110, bicarbonate 24, BUN 8, creatinine 0.6, glucose 101. IMPRESSION: 1. Status post coronary bypass grafting. Chest radiograph is unchanged. 2. Pruritus of unclear etiology, this is better. She has no erythema suggestive of a drug eruption. PLAN: Continue supportive care. Critical care time 30 min. MTDD
[2017-07-20] MEDS ORDERED: Levothyroxine Sodium 125 MCG TAB PO SCH (21:00)
[2017-07-21] MEDS: Ketorolac Tromethamine 30 MG/ML VIAL IVP SCH ×4 (00:04→18:36)
[2017-07-21] MEDS: Clopidogrel Bisulfate 75 MG TAB PO SCH (08:59)
[2017-07-21] MEDS: Famotidine 20 MG TAB PO SCH ×2 (08:59→21:28)
[2017-07-21] MEDS: Aspirin 325 MG TAB PO SCH (08:59)
[2017-07-21] MEDS: HYDROcodone/Acetaminophen 5/325 mg Tablet PO PRN ×2 (10:29→14:49)
[2017-07-21] MEDS ORDERED: Milk Of Magnesia 30 ML UDCUP PO PRN (11:28)
[2017-07-21] MEDS ORDERED: Promethazine HCl 25 MG/ML VIAL IM PRN (11:28)
[2017-07-21] MEDS ORDERED: Bisacodyl 10 MG SUPP PR PRN (11:28)
[2017-07-21] MEDS ORDERED: diphenhydrAMINE 25 MG CAP PO PRN (11:28)
[2017-07-21] MEDS ORDERED: Mag-Al 1200 mg/1200 mg/30 ML UDCUP PO PRN (11:28)
[2017-07-21] MEDS ORDERED: Artificial Tears 18 DROP/0.9 ML EA EYE PRN (11:28)
[2017-07-21] MEDS ORDERED: Mineral Oil ENEMA PR PRN (11:28)
[2017-07-21] MEDS ORDERED: Zolpidem Tartrate 5 MG TAB PO PRN (11:28)
[2017-07-21] MEDS ORDERED: Bisacodyl 5 MG TAB PO PRN (11:28)
[2017-07-21] MEDS ORDERED: Nitroglycerin 0.4 MG TAB (25 Tab Bottle) SL PRN (11:28)
[2017-07-21] MEDS ORDERED: Ondansetron HCl/PF 4 MG/2 ML Vial IVP PRN (11:28)
[2017-07-21] MEDS ORDERED: Fentanyl 100 MCG/2 ML VIAL SLOW IVP PRN ×2 (11:28)
[2017-07-21] MEDS ORDERED: Acetaminophen 325 MG TAB PO PRN (11:28)
[2017-07-21] MEDS ORDERED: Guaifenesin DM 100-10/5 ML UDCUP PO PRN (11:28)
--- NOTE | 2017-07-21 15:06 | PRG ---
DATE OF SERVICE: 07/21/2017 SUBJECTIVE: Ivelisse Bauer has no complaints. OBJECTIVE: VITAL SIGNS: Heart rate is 70, blood pressure is 120/83, respiratory rate in the teens. Intake and output is positive 680. Chest tube drainage was 20 mL LUNGS: Clear. HEART: Regular rhythm. ABDOMEN: Soft. LABORATORY DATA: There is no lab today. IMPRESSION: 1. Status post coronary artery bypass grafting. 2. Pruritus of unclear etiology that is resolved. PLAN: Continue supportive care. Transfer out of the critical care unit when surgery feels she is st able.
[2017-07-21] MEDS: Carvedilol 3.125 MG TAB PO SCH (21:28)
[2017-07-22] MEDS: HYDROcodone/Acetaminophen 5/325 mg Tablet PO PRN ×5 (01:18→20:03)
[2017-07-22] MEDS: Levothyroxine Sodium 125 MCG TAB PO SCH (04:51)
--- NOTE | 2017-07-22 08:31 | PDOC.CTH ---
<DilipRosalinda - Last Filed: 07/22/17 08:30> Cardiology Progress Note - Subjective The Pt seen and examined. No overnight events. No cardiac complaints. She has walked from bed to bathroom in CCU without any difficulties. IS up to 1999. - Objective Vital Signs Temp Pulse Resp BP Pulse Ox 07/22/17 07:52 93 L 07/22/17 07:50 97.8 F 66 16 118/61 94 L 07/22/17 05:09 98.8 F 74 16 137/79 93 L 07/21/17 21:25 97.0 F L 76 16 100 Weight 213 lb 8 oz 07/21/17 07/22/17 07/23/17 06:59 06:59 06:59 Intake Total 2490 1400 Output Total 1810 125 Balance 680 1275 - Physical Examination General/Neuro: alert & oriented x3 Neck: no JVD present Lungs: other: (diminished at bases) Heart: RRR Abdomen: other: Extremities: other: (No edema) Other PE findings: dry and clear @ MSI and Lt graft sites - Telemetry Telemetry Rhythm: SR - Labs Result Diagrams: 07/20/17 04:00 07/20/17 04:00 - Assessment/Plan 1. CAD and s/p CABG x3, Saph-Rt PDA, OM, OM2 - Stable; on ASA, BBlocker, Plavix , cont. monitor on tele 2. HTN - Stable with BBlocker; cont. monitor 3. Dyslipdemia - on Statins. 4. Post-op anemia - reasonable. MAR Reviewed * Instructed to use IS q1hr and exercise as much as possible * Possible D/c home tomorrow? Review of Systems - Review of Systems Constitutional: reports: no symptoms reported EENTM: reports: no symptoms reported Respiratory: reports: no symptoms reported Cardiac (ROS): reports: no symptoms reported ABD/GI: reports: no symptoms reported : reports: no symptoms reported Musculoskeletal: reports: no symptoms reported <Sarah Jackson - Last Filed: 07/22/17 15:08> Cardiology Progress Note - Objective Vital Signs Temp Pulse Pulse Pulse Resp BP BP 07/22/17 11:42 98.4 F 62 16 07/22/17 09:35 74 70 155/74 H 114/68 07/22/17 07:59 98.8 F 74 16 12/04/17 07:52 07/22/17 07:50 97.8 F 66 16 07/22/17 05:09 98.8 F 74 16 BP Pulse Ox Pulse Ox Pulse Ox 07/22/17 11:42 110/60 94 L 07/22/17 09:35 98 96 07/22/17 07:59 100 07/22/17 07:52 93 L 07/22/17 07:50 118/61 94 L 07/22/17 05:09 137/79 93 L Weight 213 lb 8 oz 07/21/17 07/22/17 07/23/17 06:59 06:59 06:59 Intake Total 2490 1400 Output Total 1810 125 Balance 680 1275 - Labs Result Diagrams: 07/20/17 04:00 07/20/17 04:00 - Assessment/Plan Pt. seen and eval. by me. She did well over the weekend and has been ambulating in the jones.No cardiac complaints. I agree with the A/P by the FOOT SETTER.
[2017-07-22] MEDS ORDERED: Aspirin 325 mg Enteric Coated Tablet PO SCH (09:00)
[2017-07-22] MEDS: Aspirin 81 mg Enteric Coated Tablet PO SCH (10:13)
[2017-07-22] MEDS: Potassium Chloride 10 MEQ TAB PO SCH (10:13)
[2017-07-22] MEDS: Carvedilol 3.125 MG TAB PO SCH ×2 (10:14→20:05)
[2017-07-22] MEDS: Famotidine 20 MG TAB PO SCH ×2 (10:14→20:05)
[2017-07-22] MEDS: Clopidogrel Bisulfate 75 MG TAB PO SCH (10:14)
[2017-07-22] MEDS: Furosemide 40 MG TAB PO SCH (10:14)
[2017-07-22 13:46] LABS: Oxyhemoglobin 90.7 % (94.0-97.0); Sodium 142 mmol/L (135-148)
[2017-07-22 13:46] LABS: Oxyhemoglobin 98.2 % (94.0-97.0); Sodium 140 mmol/L (135-148)
[2017-07-22 13:48] LABS: Oxyhemoglobin 97.6 % (94.0-97.0); Sodium 141 mmol/L (135-148)
[2017-07-22 13:48] LABS: Oxyhemoglobin 98.4 % (94.0-97.0); Sodium 140 mmol/L (135-148)
[2017-07-22 13:48] LABS: Base Excess 0.6 mEq/L (0 (+/- 2.5)); O2 Content (venous) 9.5 VOL% (12.5-17.5)
[2017-07-23] MEDS: Levothyroxine Sodium 125 MCG TAB PO SCH (04:09)
[2017-07-23] MEDS: HYDROcodone/Acetaminophen 5/325 mg Tablet PO PRN ×2 (04:09→09:15)
--- NOTE | 2017-07-23 07:06 | DIS ---
The patient was admitted for coronary bypass grafting and underwent bypass graft to a small PDA with good quality vein and two OM branches, the second OM branch was distal to the previous stent. Her po stoperative course was unremarkable and she had no arrhythmias. She has some soreness. Her discharg e weight is 210 pounds, which is slightly up from her admission weight. Incisions are all clean and dry and she will be discharged home to follow up with me in 2-3 weeks. She is to resume her Coreg, a spirin, Plavix, levothyroxine and Elavil. I will also give her prescription for [place]. I have not r esumed her Ranexa or her long-acting nitrates. Discharge and follow up instructions have been given.
[2017-07-23 08:29] VITALS: BP 147/73; TEMP 98.6
--- NOTE | 2017-07-23 09:09 | PDOC.CTH ---
<Rosalinda Cherry - Last Filed: 07/23/17 09:07> Cardiology Progress Note - Subjective The pt seen and examined. No overnight events. No cardiac complaints. She has walked the bolanos 5 times yesterday without any difficulties. She complains of intermittent sharp discomfort in her Lt shoulder with movement - Objective Vital Signs Temp Pulse Resp BP BP Pulse Ox 07/23/17 07:52 98.6 F 72 16 147/73 H 93 L 07/23/17 04:05 98.9 F 72 20 141/66 H 93 L 07/22/17 23:37 97.3 F L 69 16 113/56 L 92 L Weight 209 lb 4.8 oz 07/22/17 07/23/17 07/24/17 06:59 06:59 06:59 Intake Total 1400 400 Output Total 125 300 Balance 1275 100 - Physical Examination General/Neuro: alert & oriented x3 Neck: no JVD present Lungs: CTA Heart: RRR Abdomen: soft Extremities: other: (No edemas; incision @ MSI and Lt saph TOMER &dry) - Telemetry Telemetry Rhythm: SR 70 - Labs Result Diagrams: 07/20/17 04:00 07/20/17 04:00 - Assessment/Plan 1. CAD and s/p CABG x3, Saph-Rt PDA, OM, OM2 - Stable; on ASA, BBlocker, Plavix ; 2. HTN - increase Coreg from 3.125mg to 6.25mg PO BID; cont. monitor 3. Dyslipdemia - on Statins. 4. Post-op anemia - reasonable. MAR Reviewed *From Cardiac standpoint, the pt is stable for discharge to home; the pt will f/ u with Dr Jackson' office within 4 wks. Review of Systems - Review of Systems Constitutional: reports: no symptoms reported EENTM: reports: no symptoms reported Respiratory: reports: no symptoms reported Cardiac (ROS): reports: no symptoms reported ABD/GI: reports: no symptoms reported : reports: no symptoms reported Musculoskeletal: reports: no symptoms reported <Sarah Jackson - Last Filed: 07/23/17 11:53> Cardiology Progress Note - Objective Vital Signs Temp Pulse Resp BP Pulse Ox 07/23/17 08:00 98.6 F 72 16 07/23/17 07:52 98.6 F 72 16 147/73 H 93 L 07/23/17 04:05 98.9 F 72 20 141/66 H 93 L Weight 209 lb 4.8 oz 07/22/17 07/23/17 07/24/17 06:59 06:59 06:59 Intake Total 1400 400 Output Total 125 300 Balance 1275 100 - Labs Result Diagrams: 07/20/17 04:00 07/20/17 04:00 - Assessment/Plan Pt. seen and eval. by me. Ready for d/c after CABG. Doing well. I agree with the A/P by the INSURANCE CONSULTANT. Chest clear, RRR.
[2017-07-23] MEDS: Famotidine 20 MG TAB PO SCH (09:14)
[2017-07-23] MEDS: Clopidogrel Bisulfate 75 MG TAB PO SCH (09:14)
[2017-07-23] MEDS: Carvedilol 3.125 MG TAB PO SCH (09:15)
[2017-07-23] MEDS: Potassium Chloride 10 MEQ TAB PO SCH (09:15)
[2017-07-23] MEDS: Aspirin 81 mg Enteric Coated Tablet PO SCH (09:15)
[2017-07-23] MEDS: Furosemide 40 MG TAB PO SCH (09:15)
[2017-07-24 06:39] LABS: Mode OR ABG; Vent YES
[2017-07-24 06:40] LABS: Mode OR ABG; Vent YES
[2017-07-24 06:41] LABS: Mode OR ABG; Vent YES
[2017-07-24 06:41] LABS: Mode OR ABG; Vent YES
[2017-07-24 07:40] LABS: Sodium 142 mmol/L (135-148)
[2017-07-24 09:06] LABS: Mode OR ABG; Vent YES
== END 2017-07-23 12:45 | disposition home or self-care (01) | DRG 235 ==
LOC: SURG A 08:12 → CCU 15:36 → 2SW 07-21 19:50
PROVIDERS: ADMIT Thoracic Surgery (Cardiothoracic Vascular Surgery); ATTEND Thoracic Surgery (Cardiothoracic Vascular Surgery)
PROC: 021209W Bypass Coronary Artery, Three Arteries from Aorta with Autologous Venous Tissue, Open Approach (ICD-10-PCS; principal; 2017-07-19)
PROC: 06BQ3ZZ Excision of Left Saphenous Vein, Percutaneous Approach (ICD-10-PCS; 2017-07-19)
PROC: 5A1221Z Performance of Cardiac Output, Continuous (ICD-10-PCS; 2017-07-19)
DX: I25.110 Atherosclerotic heart disease of native coronary artery with unstable angina pectoris (principal); G93.41 Metabolic encephalopathy; R57.0 Cardiogenic shock; J96.90 Respiratory failure, unspecified, unspecified whether with hypoxia or hypercapnia; E87.3 Alkalosis; L29.9 Pruritus, unspecified; E78.5 Hyperlipidemia, unspecified; E03.9 Hypothyroidism, unspecified; G89.29 Other chronic pain; D64.9 Anemia, unspecified; Z88.1 Allergy status to other antibiotic agents; Z88.5 Allergy status to narcotic agent; Z88.0 Allergy status to penicillin; Z88.2 Allergy status to sulfonamides; Z87.891 Personal history of nicotine dependence; Z79.891 Long term (current) use of opiate analgesic
CPT/HCPCS: 36415; 36416; 36430; 71010; 80048; 82805; 85025; 85610; 85730; 86850; 86900; 86901; 93005; 93010; 93798; 94002; 94150; A4216; J1170; J1642; J1644; J1815; J1885; J1956; J2250; J2270; J2370; J2405; J2704; J2720; J3010; J3475; J3480; J7050; P9045; S0017; S0028

== ENCOUNTER 2018-10-18 21:07 | Emergency (ER) | payer OTHER, SELFPAY ==
[~2018-10-18 21:07] MED LIST: Iopamidol 300 61% 100 ML VIAL FS ONE
[2018-10-18 21:54] LABS: Bilirubin Negative (Negative); Blood, Urine Trace (Negative); Clarity Clear (Clear); Glucose, Urine (Dipstick) Negative (Negative); Leukocyte Negative (Negative); Nitrite Negative (Negative); Protein, Urine (Dipstick) Negative (Neg-Trace); Urobilinogen 0.2 mg/dL (0.2-1.0)
[2018-10-18 21:55] LABS: Bacteria/HPF None Seen HPF (None Seen); Hyaline Casts/LPF NONE SEEN LPF (0-3 Hyaline); RBC/HPF 0-3 HPF (0-3); Squamous Epithelial 0-3 HPF (0-3); WBC/HPF 0-3 HPF (0-3)
[2018-10-18] MEDS ORDERED: Ketorolac Tromethamine 30 MG/ML VIAL ONE ×2 (22:15→22:49)
[2018-10-18 22:30] LABS: #Basophils 0.1 thou/uL (0.0-0.2); #Eosinphils 0.1 thou/uL (0.0-0.7); #Lymphocytes 2.3 thou/uL (1.20-3.40); #Monocytes 0.8 thou/uL (0.11-0.59); #Neutrophils 8.6 thou/uL (1.40-6.50); %Basophils 0.9 % (0.0-1.0); %Eosinophils 1.2 % (0.0-10.0); %Lymphocytes 19.5 % (21.0-51.0); %Monocytes 6.6 % (0.0-10.0); %Neutrophils 71.7 % (42.0-75.0); Hemoglobin 12.4 g/dL (12.0-16.0); Mean Corpuscular Hemoglobin 26.9 pg (27.0-31.0); Mean Corpuscular Volume 83.8 fL (78.0-98.0); Mean Platelet Volume 11.2 fL (7.4-10.4); Platelet Count 278 thou/uL (130-400); RBC Distribution Width 15.2 % (11.5-14.5); Red Blood Cell (RBC) Count 4.63 mill/uL (4.20-5.40); White Blood Cell (WBC) Count 11.9 thou/uL (4.8-10.8)
[2018-10-18 22:46] LABS: ALT (SGPT) 20 U/L (8-55); AST (SGOT) 27 U/L (5-34); Albumin 4.2 g/dL (3.5-5.0); Alkaline Phosphatase 112 U/L (40-150); Anion Gap 17 mmol/L (10-20); BUN (Urea Nitrogen) 12 mg/dL (9.8-20.1); Bilirubin, Total 0.4 mg/dL (0.2-1.2); Calc. Creatinine Clearance 0 mL/min (70-130); Calcium 9.1 mg/dL (7.8-10.44); Carbon Dioxide 21 mmol/L (22-29); Chloride 106 mmol/L (98-107); Estimated GFR-MDRD 80; Glucose 94 mg/dL (70-105); Lipase 18 U/L (8-78); Protein, Total 7.2 g/dL (6.0-8.3); Sodium 140 mmol/L (136-145)
[2018-10-18] MEDS ORDERED: metroNIDAZOLE 500 MG/100 ML BAG ONE (23:37)
[2018-10-18] MEDS ORDERED: Morphine 4 MG/ML VIAL ONE (23:37)
[2018-10-18] MEDS ORDERED: Ciprofloxacin Lactate/D5W 400 mg/200 ml Premix ONE (23:37)
--- NOTE | 2018-10-18 23:41 | CT ---
CONTRAST ENHANCED CT IMAGES OF THE ABDOMEN AND PELVIS 10/18/18 Unfortunate oral contrast was not given. This does decrease the sensitivity for detection of patholog y. The patient has a history of lower abdominal pain, history of diverticulitis. Contrast enhanced CT images of the abdomen and pelvis demonstrate the lung bases to be unremarkable. No evidence of free intraperitoneal air seen. The liver and spleen are unremarkable. The gallbladder is unremarkable. The pancreas unremarkable. Gastric staple line seen in the stomach compatible with previous gastric surgery. Adrenal glands unremarkable. The kidneys are unremarkable with no evidence of masses or lesions. No evidence of hydronephrosis seen. Atherosclerotic calcification seen in the abdominal aorta. There is a small area of aneurysmal dilatation of the intrarenal abdominal aorta. Maximum diameter me asuring 2.1 x 2.5 cm compared to the more proximal intrarenal abdominal aorta where diameter measured 1.7 x 1.8 cm. No dilated loops of small bowel seen. the appendix is not visualized. There is extensive inflammatory change in the descending colon and sigmoid colon where there is an ap proximately 8 cm segment of marked wall thickening of the colon. This is compatible with diverticulit is or possible segment of colonic neoplasm. There is also extensive diverticulosis in this segment. N o definite evidence of abscess seen although the surrounding fat does demonstrate stranding compatibl e with adjacent pericolonic fat inflammatory process. The inflamed segment of colon does abut the adjacent urinary bladder. No definite evidence of gas see n within the urinary bladder. IMPRESSION: 1. Sigmoid colonic segment of marked thickening with surrounding inflammatory change compatible with diverticulitis versus possible neoplastic process. Correlate with history. 2. Postsurgical changes including gastric sleeve and likely appendectomy and hysterectomy. 3. Small area of aneurysmal dilatation of the infrarenal abdominal aorta. POS: [facility]
[2018-10-18] MEDS ORDERED: Ondansetron PF 4 MG/2 ML Vial ONE (23:46)
== END 2018-10-19 01:54 | disposition home or self-care (01) ==
LOC: SCSER 21:07
DX: K57.92 Diverticulitis of intestine, part unspecified, without perforation or abscess without bleeding (principal); I25.2 Old myocardial infarction; E03.9 Hypothyroidism, unspecified; E78.5 Hyperlipidemia, unspecified
CPT/HCPCS: 74177; 80053; 81003; 81015; 83690; 85025; 96361; 96365; 96367; 96375; J0744; J1885; J2270; J2405; Q9967

== ENCOUNTER 2019-02-24 10:51 | Outpatient (CLI) | payer OTHER ==
--- NOTE | 2019-02-25 15:27 | MMO ---
Bilateral MAMMO Bilat Screen [facility]. CLINICAL HISTORY: Patient is 58 years old and is seen for screening. The patient has no family history of breast cancer. The patient has no personal history of cancer. VIEWS: The views performed were: bilateral craniocaudal with tomosynthesis and bilateral mediolateral oblique with tomosynthesis. MAMMOGRAM FINDINGS: There are scattered fibroglandular densities. There are benign appearing calcifications seen in the right breast. There are no suspicious masses, suspicious calcifications, or new areas of architectural distortion. IMPRESSION: THERE IS NO MAMMOGRAPHIC EVIDENCE OF MALIGNANCY. A ROUTINE FOLLOW-UP MAMMOGRAM IN 1 YEAR IS RECOMMENDED. THE RESULTS OF THIS EXAM WERE SENT TO THE PATIENT. ACR BI-RADS Category 2 - Benign finding MAMMOGRAPHY NOTE: 1. A negative mammogram report should not delay a biopsy if a dominant of clinically suspicious mass is present. 2. Approximately 10% to 15% of breast cancers are not detected by mammography. 3. Adenosis and dense breasts may obscure an underlying neoplasm. Reported by: NINA NIEVES MD Electonically Signed: [id number]
== END 2019-02-24 10:52 | disposition home or self-care (01) ==
LOC: BICMAMMO 10:51
PROVIDERS: ATTEND Pediatrics Pediatric Allergy/Immunology
DX: Z12.31 Encounter for screening mammogram for malignant neoplasm of breast (principal)
CPT/HCPCS: 77063; 77067

== ENCOUNTER 2019-02-25 08:01 | Day surgery (SDC) | payer OTHER ==
[2019-02-24 12:46] VITALS: BMI 31.3
--- NOTE | 2019-02-24 22:45 | HP ---
HISTORY OF PRESENT ILLNESS: This is a 58-year-old female, comes for a colonoscopy for colon cancer screening. The patient has no specific reason. She had an episode of diverticulitis in the past. Last colonoscopy was 3 months ago. No abdominal pain. No hematochezia. ALLERGIES: PENICILLIN, SULFA. SOCIAL HISTORY: The patient is a former smoker. Does not drink alcohol. MEDICAL ILLNESS: 1. Hypertension. 2. Hyperlipidemia. 3. Coronary artery disease, status post CABG. 4. Insomnia. 5. Obesity. 6. Chronic acid reflux. 7. Hypothyroidism. 8. Status post gastric sleeve. 9. Hysterectomy. PHYSICAL EXAMINATION: VITAL SIGNS: Her weight is 209, pulse is 74, and blood pressure 130/78. HEENT: Conjunctivae clear. CARDIOVASCULAR: First and second heart sounds are normal. LUNGS: Clear to auscultation. ABDOMEN: Soft to palpate. No organomegaly. No tenderness. No masses. EXTREMITIES: Reveal no edema. ADMITTING DIAGNOSIS: A 58-year-old female, comes for a colonoscopy for colon cancer screening. Job ID: [id number]
[2019-02-25] MEDS ORDERED: PROPOFOL 200 MG/20 ML VIAL ONE (16:08)
--- NOTE | 2019-02-26 09:20 | OP ---
DATE OF PROCEDURE: 02/25/2019 PROCEDURE PERFORMED: Colonoscopy. PREOPERATIVE DIAGNOSIS: A 58-year-old female is undergoing colonoscopy for colon cancer screening. POSTOPERATIVE DIAGNOSIS: Sigmoid diverticular disease. However, the exam is normal. DESCRIPTION OF PROCEDURE: The patient was placed on her left lateral position and was given sedation by Anesthesia Department. The rectal exam was done before the scope was advanced into the rectum. No lesions were felt on rectal exam. A Pentax video colonoscope was introduced into the rectum and advanced all the way into the cecum. The patient had a redundant colon and it was difficult to get past the sigmoid colon. Abdominal compression was used to advance the scope into the proximal colon. easily get the scope all the way into the cecum. The appendicular opening, ileocecal valve, cecum, no pathology. The bowel prep was very good. The mucosa appeared normal throughout the colon with normal vascular pattern. The ileocecal valve, cecum, no lesions. The ascending colon, hepatic flexure, transverse colon, splenic flexure, descending colon, no pathology seen. The sigmoid colon showed some scattered diverticula in lower sigmoid area. The rectum showed small hemorrhoids. DISCHARGE PLANNING: A 58-year-old female, came for colonoscopy for colon cancer screening. The colonoscopy showed no pathology except for sigmoid diverticulosis and redundant colon. DISCHARGE RECOMMENDATION: 1. The patient advised to call me if she develops abdominal pain, hematochezia. 2. In the absence of any of the symptoms, she will come back to me in 2 weeks. I would recommend repeat colonoscopy in 10 years. Job ID: [id number]
== END 2019-02-25 11:40 | disposition home or self-care (01) ==
LOC: SDC 08:01
PROVIDERS: ATTEND Internal Medicine Gastroenterology
PROC: 0DJD8ZZ Inspection of Lower Intestinal Tract, Via Natural or Artificial Opening Endoscopic (ICD-10-PCS; principal; 2019-02-25)
DX: Z12.11 Encounter for screening for malignant neoplasm of colon (principal); K57.30 Diverticulosis of large intestine without perforation or abscess without bleeding; K64.9 Unspecified hemorrhoids; I10 Essential (primary) hypertension; E78.5 Hyperlipidemia, unspecified; I25.10 Atherosclerotic heart disease of native coronary artery without angina pectoris; G47.00 Insomnia, unspecified; E66.9 Obesity, unspecified; K21.9 Gastro-esophageal reflux disease without esophagitis; E03.9 Hypothyroidism, unspecified; Z98.84 Bariatric surgery status; Z95.1 Presence of aortocoronary bypass graft; Z87.891 Personal history of nicotine dependence; Z68.31 Body mass index [BMI] 31.0-31.9, adult; Z88.2 Allergy status to sulfonamides; Z88.0 Allergy status to penicillin; Z88.1 Allergy status to other antibiotic agents; Z79.82 Long term (current) use of aspirin; Z79.02 Long term (current) use of antithrombotics/antiplatelets; Z79.899 Other long term (current) drug therapy
CPT/HCPCS: J2704

== ENCOUNTER 2019-12-12 21:00 | Inpatient (IN) | payer OTHER ==
[~2019-12-12 21:00] MED LIST changes: -Iopamidol 300 61% 100 ML VIAL FS ONE; +Iopamidol-370 76% 500 ML 1 ML ONE
[2019-12-12] MEDS ORDERED: Ondansetron PF 4 MG/2 ML Vial ONE (21:33)
[2019-12-12] MEDS ORDERED: Ketorolac Tromethamine 30 MG/ML VIAL ONE (21:33)
[2019-12-12] MEDS ORDERED: Famotidine/PF 20 mg/2ml Vial ONE (21:33)
[2019-12-12 21:45] LABS: Bilirubin Negative (Negative); Blood, Urine Negative (Negative); Clarity Clear (Clear); Glucose, Urine (Dipstick) Normal (Negative); Leukocyte Negative Leu/uL (Negative); Nitrite Negative (Negative); Protein, Urine (Dipstick) Negative (Neg-Trace); Urobilinogen Normal mg/dL (Less than 2)
[2019-12-12 21:50] LABS: Hemoglobin 14.8 g/dL (12.0-16.0); Mean Corpuscular HGB CONC 31.8 g/dL (32.0-36.0); Mean Corpuscular Volume 91.4 fL (78.0-98.0); Mean Platelet Volume 9.6 fL (7.4-10.4); Platelet Count 269 thou/uL (130-400); RBC Distribution Width 13.8 % (11.5-14.5); Red Blood Cell (RBC) Count 5.08 mill/uL (4.20-5.40); White Blood Cell (WBC) Count 25.2 thou/uL (4.8-10.8)
[2019-12-12 22:07] LABS: Band 39 % (5-11); Lymphocytes 2 % (21-51); MDiff Complete? YES; Metamyelocyte 1 % (0-0); Monocytes 5 % (0-10); Neutrophil 53 % (42-75)
[2019-12-12 22:17] LABS: ALT (SGPT) 20 U/L (8-55); AST (SGOT) 24 U/L (5-34); Albumin 4.4 g/dL (3.4-4.8); Alkaline Phosphatase 125 U/L (40-110); Anion Gap 16 mmol/L (10-20); BUN (Urea Nitrogen) 9 mg/dL (9.8-20.1); Bilirubin, Total 0.7 mg/dL (0.2-1.2); Calc. Creatinine Clearance 0 mL/min (70-130); Calcium 9.6 mg/dL (7.8-10.44); Carbon Dioxide 22 mmol/L (23-31); Chloride 101 mmol/L (98-107); Estimated GFR-MDRD 74; Globulin 3.1 g/dL (2.4-3.5); Glucose 170 mg/dL (80-115); Lipase 12 U/L (8-78); Potassium 3.4 mmol/L (3.5-5.1); Protein, Total 7.5 g/dL (6.0-8.3); Sodium 136 mmol/L (136-145)
[2019-12-12] MEDS ORDERED: Piperacillin/Tazobactam 4.5 GM VIAL ONE (22:37)
[2019-12-12] MEDS ORDERED: Vancomycin 1 GM/200 ML BAG ONE (23:06)
[2019-12-12] MEDS ORDERED: Vancomycin HCl 500 MG VIAL ONE (23:06)
[2019-12-12] MEDS ORDERED: Morphine 4 MG/ML VIAL ONE (23:23)
--- NOTE | 2019-12-12 23:36 | CT ---
EXAM: CT ABDOMEN AND PELVIS HISTORY: Multiple episodes of cramping and abdominal pain. COMPARISON: 10/18/2018 Procedure: Multiple contiguous axial images were obtained and a CT of the abdomen and pelvis with IV contrast. C oronal reformats were performed. FINDINGS: Lower Chest: within normal limits. Vessels: Normal caliber thoracic aorta. Stable mild prominence of the infrarenal abdominal aorta. No periaortic fat stranding Heart: Normal heart size. There are coronary artery calcifications. Abdomen: Portal vein:Patent Gallbladder: No calcified gallstones. Normal caliber wall. Liver: Possible focal fatty infiltration involving the right hepatic lobe near the falciform ligament . No enhancing hepatic masses. Pancreas: within normal limits. Spleen: within normal limits. Adrenals: within normal limits. Kidneys: Symmetric enhancement. No obstructive uropathy. Peritoneum: No ascites or free air, no fluid collection. Bowel: Limited evaluation due to lack of oral contrast administration. There is evidence of previous bariatric change. No small bowel obstruction. Ileocecal junction is normal. Normal caliber appendix. Scattered fecal material throughout the colon. There is bowel wall thickening with pericolo luisa fat stranding involving the distal transverse colon, splenic fracture and proximal to mid ascending colon. There are diverticula in the distal descending colon and sigmoid colon. No evidence of diverticulitis. Mesentery and Retroperitoneum: No enlarged mesenteric or retroperitoneal lymph nodes. Abdominal Wall: within normal limits. Pelvis: Reproductive Organs: Surgically absent uterus Pelvis: No mass, lymphadenopathy, free air or free fluid. Bladder: within normal limits. Bones: within normal limits. IMPRESSION: Long segment inflammatory changes involving the left hemicolon as described above. An infectious or i nflammatory colitis is suspected. Ischemic colitis cannot be entirely excluded but is less favored.
[2019-12-13 00:50] LABS: Lactic Acid 3.6 mmol/L (0.5-2.2)
[2019-12-13] MEDS ORDERED: Sodium Chloride 0.9% 1,000 ML IV SCH (01:45)
[2019-12-13 01:47] VITALS: BMI 34.1
[2019-12-13] MEDS ORDERED: Acetaminophen 650 MG Suppository PR PRN (02:22)
[2019-12-13] MEDS ORDERED: Ondansetron PF 4 MG/2 ML Vial IVP PRN (02:22)
[2019-12-13] MEDS ORDERED: Acetaminophen 325 MG TAB PO PRN (02:22)
[2019-12-13] MEDS ORDERED: Calcium Carbonate 500 MG ChewTAB PO PRN (02:22)
[2019-12-13] MEDS: Morphine 4 MG/ML VIAL SLOW IVP PRN ×4 (02:43→20:15)
[2019-12-13] MEDS: Lactated Ringer's 1,000 ML IV SCH ×2 (02:44→13:08)
[2019-12-13] MEDS ORDERED: Potassium Chloride 10 MEQ in Premix Bag 1 BAG IVPB SCH (02:45)
--- NOTE | 2019-12-13 03:02 | PDOC.FPRHP ---
- History of Present Illness Chief Complaint: Abdominal Pain/Diarrhea History of Present Illness: 59 yo F w/ pmh of CAD w/ 9 stents, HLD, HTN, Hypothyroidism, diverticula comes in w/ c/c of abdominal pain and diarrhea. Pt reports this morning having chills. Denies ever recording fever. Reports having 12 episodes of loose diarrhea with some bright red blood. Denies any n/v. Pt reports having lots of cramping and diffuse abdominal pain. pt reports hx of diverticulitis in past. Had colonoscopy a year ago w/ Dr. Major which she was told just showed some tics. Pt denies chest pain or Sob. Denies any cough. Pt denies any urinary sx's. Pt denies eating anything abnormal. Pt denies any recent infections. Denies any recent abx use. 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 ED Course: Given 30mg/kg fluid bolus. given dose of vanc and zosyn. - Allergies/Adverse Reactions Allergies Allergy/AdvReac Type Severity Reaction Status Date / Time Penicillins Allergy Intermediate Hives Verified 12/13/19 01:39 Sulfa (Sulfonamide Allergy Intermediate Hives Verified 12/13/19 01:39 Antibiotics) clindamycin AdvReac Headache Verified 12/13/19 01:39 - Home Medications Medication Instructions Recorded Confirmed Type Amitriptyline HCl 25 mg PO HS 07/27/15 12/13/19 History Carvedilol [Coreg] 3.125 mg PO BID 07/27/15 12/13/19 History Rosuvastatin [Crestor] 20 mg PO HS 08/23/15 12/13/19 History Aspirin [Ecotrin Low Strength] 81 mg PO HS 07/09/17 12/13/19 History Levothyroxine Sodium [Synthroid] 137 mcg PO HS 07/09/17 12/13/19 History Clopidogrel Bisulfate [Clopidogrel] 1 tab PO HS 07/17/17 12/13/19 History Ibuprofen [Motrin] 800 mg PO BID PRN 07/17/17 12/13/19 History Amlodipine [Norvasc] 5 mg PO HS 02/24/19 12/13/19 History Isosorbide Mononitrate 10 mg PO DAILY 12/13/19 12/13/19 History Lisinopril 10 mg PO DAILY 12/13/19 12/13/19 History Ranolazine [Ranexa] 500 mg PO DAILY 12/13/19 12/13/19 History Comments: The above medication was reviewed with patient and reviewed from clinic records. The above meds and doses are correct. - History PMHx: CAD x9 stents, HTN, HLD, Hypothyroidism, Diverticula, PSHx: CABG 07/05, Appendectomy, Hysterectomy, Gastric Sleeve (2016), Achilles tendon surgery FHx: Father with heart history w/ first MD age 30 Social: Smoked for 20 yrs. Quit 18 years ago. Denies alcohol or illicit drug use. Pt is Full Code - Review of Systems General: reports: fever/chills. denies: weight/appetite/sleep changes, night sweats, fatigue ENT: denies: nasal congestion, rhinorrhea Respiratory: denies: cough, congestion, shortness of breath Cardiovascular: denies: chest pain, edema Gastrointestinal: reports: diarrhea, abdominal pain, GI bleeding. denies: nausea, vomiting, constipation Genitourinary: denies: incontinence, dysuria Skin: denies: rashes, lesions Musculoskeletal: reports: pain (Pt reports neuropathy in LE). denies: tenderness, stiffness, swelling, arthritis/arthralgias Neurological: denies: numbness, weakness Psychological: denies: anxiety, depression - Vital signs BP: [154/70] HR: [63] RR: [20] Tmax: [97.7] Pox: [99]% on [RA] Wt: [98kg] - Physical Exam Constitutional: NAD, awake, alert and oriented, well developed HEENT: normocephalic and atraumatic, grossly normal vision, grossly normal hearing (Pt a little hard of hearing as doesn't have hearing aids), MMM Neck: supple, no JVD Chest: no-tender to palpation Heart: RRR, normal S1/S2, no murmurs/rubs/gallops, pulses present, no edema Lungs: CTAB, no respiratory distress, good air movement, no rales/rhonchi, no wheezing Abdomen: bowel sounds present, no masses/distention, no hernias -Abdomen: Pt tender to palpation diffusely. Pt very tender in LLQ. Some rebound noted in LLQ. Howard and Mcburney negative. Neurological: no focal deficit, normal sensation Skin: no rash/lesions, good turgor, capillary refill <2 seconds Heme/Lymphatic: no unusual bruising or bleeding Psychiatric: normal mood and affect, good judgment and insight, intact recent and remote memory FMR H&P: Results - Labs Result Diagrams: 12/13/19 03:16 12/13/19 02:51 Lab results: WBC 25.2 thou/uL (4.8-10.8) H 12/12/19 21:36 Hgb 14.8 g/dL (12.0-16.0) 12/12/19 21:36 Hct 46.4 % (36.0-47.0) 12/12/19 21:36 MCV 91.4 fL (78.0-98.0) 12/12/19 21:36 Plt Count 269 thou/uL (130-400) 12/12/19 21:36 Band Neuts % (Manual) 39 % (5-11) H 12/12/19 21:36 Sodium 136 mmol/L (136-145) 12/12/19 21:36 Potassium 3.4 mmol/L (3.5-5.1) L 12/12/19 21:36 Chloride 101 mmol/L (98-107) 12/12/19 21:36 Carbon Dioxide 22 mmol/L (23-31) L 12/12/19 21:36 BUN 9 mg/dL (9.8-20.1) L 12/12/19 21:36 Creatinine 0.79 mg/dL (0.6-1.1) 12/12/19 21:36 Glucose 170 mg/dL (80-115) H 12/12/19 21:36 Lactic Acid 3.6 mmol/L (0.5-2.2) H 12/13/19 00:27 Calcium 9.6 mg/dL (7.8-10.44) 12/12/19 21:36 Total Bilirubin 0.7 mg/dL (0.2-1.2) 12/12/19 21:36 AST 24 U/L (5-34) 12/12/19 21:36 ALT 20 U/L (8-55) 12/12/19 21:36 Alkaline Phosphatase 125 U/L (40-110) H 12/12/19 21:36 Serum Total Protein 7.5 g/dL (6.0-8.3) 12/12/19 21:36 Albumin 4.4 g/dL (3.4-4.8) 12/12/19 21:36 Lipase 12 U/L (8-78) 12/12/19 21:36 Urine Ketones Trace mg/dL (Negative) A 12/12/19 21:25 Urine Blood Negative (Negative) 12/12/19 21:25 Urine Nitrite Negative (Negative) 12/12/19 21:25 Ur Leukocyte Esterase Negative George/uL (Negative) 12/12/19 21:25 - Radiology Interpretation CT scan - abdomen Status: image reviewed by me, report reviewed by me (CT scan shows concerns for infectious colitis in Left hemicolon. Cannot fully exclude ischemic colitis.) FMR H&P: A/P - Problem List (1) Infectious colitis Current Visit: Yes Status: Acute Code(s): A09 - INFECTIOUS GASTROENTERITIS AND COLITIS, UNSPECIFIED (2) Coronary artery disease Current Visit: No Status: Acute Code(s): I25.10 - ATHSCL HEART DISEASE OF [place] CORONARY ARTERY W/O ANG PCTRS Qualifiers: Coronary Disease-Associated Artery/Lesion type: [place] artery [place] vs. transplanted heart: [place] heart Associated angina: with unstable angina Qualified Code(s): I25.110 - Atherosclerotic heart disease of [place] coronary artery with unstable angina pectoris (3) HLD (hyperlipidemia) Current Visit: No Status: Acute Code(s): E78.5 - HYPERLIPIDEMIA, UNSPECIFIED Qualifiers: Hyperlipidemia type: unspecified Qualified Code(s): E78.5 - Hyperlipidemia , unspecified (4) HTN (hypertension) Current Visit: No Status: Acute Code(s): I10 - ESSENTIAL (PRIMARY) HYPERTENSION Qualifiers: Hypertension type: essential hypertension Qualified Code(s): I10 - Essential (primary) hypertension (5) Hypothyroid Current Visit: No Status: Acute Code(s): E03.9 - HYPOTHYROIDISM, UNSPECIFIED Qualifiers: Hypothyroidism type: acquired Qualified Code(s): E03.9 - Hypothyroidism, unspecified (6) Lactic acidosis Current Visit: Yes Status: Acute Code(s): E87.2 - ACIDOSIS - Plan Infectious Colitis -pt very tender in LLQ with corresponding CT findings concerning for infectious colitis. Pt reports hx of diverticula with episode of diverticulitis in past -Given Vanc and Zosyn in ER. Will start IV clinda and metro as pt reports allergy to penicillins. -WBC 25 will continue to trend and monitor -LA elevated. Will trend. -VSS -Bentyl, Zofran, Morphine for pain. -NPO -Stool studies pending. CAD -continue home meds HTN -continue home meds HLD -continue home meds Hypothyroidism -continue home meds DVT ppx: ASA, Plavix GERD: Tums Dispo: will admit pt for pain control and to tx with IV abx til can tolerate PO better. Addendum - Attending - Attending Attestation Date/Time: 12/13/19 3378 I personally evaluated the patient and discussed the management with Dr. Conner. I agree with the History, Examination, Assessment and Plan documented above with any addition or exceptions noted below. Diffuse abdominal TTP with worse TTP in LLQ. Hx and CT c/w infectious colitis. No BM since admission. Continue abx and symptom management. Stool studies when collected. advance diet as tolerated. DOES NOT meet SIRS criteria in hospital or in ER record. Only had elevated WBC.
[2019-12-13 03:32] LABS: ALT (SGPT) 15 U/L (8-55); AST (SGOT) 17 U/L (5-34); Albumin 3.6 g/dL (3.4-4.8); Alkaline Phosphatase 95 U/L (40-110); Anion Gap 15 mmol/L (10-20); BUN (Urea Nitrogen) 8 mg/dL (9.8-20.1); Bilirubin, Total 0.7 mg/dL (0.2-1.2); Calc. Creatinine Clearance 128 mL/min (70-130); Calcium 8.2 mg/dL (7.8-10.44); Carbon Dioxide 18 mmol/L (23-31); Chloride 109 mmol/L (98-107); Estimated GFR-MDRD 82; Globulin 2.4 g/dL (2.4-3.5); Glucose 123 mg/dL (80-115); Potassium 3.7 mmol/L (3.5-5.1); Sodium 138 mmol/L (136-145)
[2019-12-13] MEDS ORDERED: Morphine 4 MG/ML VIAL SLOW IVP SCH (04:15)
[2019-12-13 04:16] LABS: Band 27 % (5-11); Hemoglobin 13.2 g/dL (12.0-16.0); Lymphocytes 9 % (21-51); MDiff Complete? YES; Mean Corpuscular HGB CONC 31.7 g/dL (32.0-36.0); Mean Corpuscular Hemoglobin 29.6 pg (27.0-31.0); Mean Corpuscular Volume 93.4 fL (78.0-98.0); Mean Platelet Volume 9.9 fL (7.4-10.4); Monocytes 4 % (0-10); Neutrophil 60 % (42-75); Platelet Count 217 thou/uL (130-400); RBC Distribution Width 13.8 % (11.5-14.5); Red Blood Cell (RBC) Count 4.46 mill/uL (4.20-5.40); White Blood Cell (WBC) Count 22.4 thou/uL (4.8-10.8)
[2019-12-13] MEDS: metroNIDAZOLE 500 MG in Premix Bag 1 BAG IVPB SCH ×3 (06:16→22:25)
[2019-12-13] MEDS: Lisinopril 10 MG TAB PO SCH (08:05)
[2019-12-13] MEDS: Dicyclomine 20 MG TAB PO SCH ×2 (08:05→13:05)
[2019-12-13] MEDS: Carvedilol 3.125 MG TAB PO SCH ×2 (08:05→20:34)
[2019-12-13] MEDS: Isosorbide Mononitrate 20 MG TAB PO SCH (08:16)
[2019-12-13] MEDS ORDERED: Dicyclomine 20 MG TAB PO PRN (13:18)
[2019-12-13] MEDS: Sodium Chloride 0.9% 1,000 ML IV SCH (20:16)
[2019-12-13] MEDS: Levothyroxine Sodium 25 MCG TAB PO SCH (20:32)
[2019-12-13] MEDS: Rosuvastatin 20 MG TAB PO SCH (20:33)
[2019-12-13] MEDS: Levothyroxine Sodium 112 MCG TAB PO SCH (20:33)
[2019-12-13] MEDS: Clopidogrel Bisulfate 75 MG TAB PO SCH (20:34)
[2019-12-13] MEDS: Amitriptyline HCl 25 MG TAB PO SCH (20:34)
[2019-12-13] MEDS: Amlodipine 5 MG TAB PO SCH (20:56)
[2019-12-13] MEDS ORDERED: Aspirin 81 mg Enteric Coated Tablet PO SCH (21:00)
[2019-12-14] MEDS: Morphine 4 MG/ML VIAL SLOW IVP PRN ×4 (01:10→18:34)
[2019-12-14 01:23] LABS: #Basophils 0.1 thou/uL (0.0-0.2); #Eosinphils 0.2 thou/uL (0.0-0.7); #Lymphocytes 2.6 thou/uL (1.20-3.40); #Monocytes 0.7 thou/uL (0.11-0.59); %Basophils 0.4 % (0.0-1.0); %Eosinophils 1.5 % (0.0-10.0); %Lymphocytes 16.6 % (21.0-51.0); %Monocytes 4.5 % (0.0-10.0); %Neutrophils 77.1 % (42.0-75.0); Hemoglobin 11.7 g/dL (12.0-16.0); Mean Corpuscular HGB CONC 31.7 g/dL (32.0-36.0); Mean Corpuscular Hemoglobin 29.3 pg (27.0-31.0); Mean Corpuscular Volume 92.3 fL (78.0-98.0); Mean Platelet Volume 9.3 fL (7.4-10.4); Platelet Count 217 thou/uL (130-400); RBC Distribution Width 13.6 % (11.5-14.5); Red Blood Cell (RBC) Count 3.99 mill/uL (4.20-5.40); White Blood Cell (WBC) Count 15.5 thou/uL (4.8-10.8)
[2019-12-14] MEDS: metroNIDAZOLE 500 MG in Premix Bag 1 BAG IVPB SCH ×3 (05:34→21:27)
[2019-12-14 05:41] LABS: #Eosinphils 0.2 thou/uL (0.0-0.7); #Lymphocytes 2.1 thou/uL (1.20-3.40); #Monocytes 0.7 thou/uL (0.11-0.59); #Neutrophils 10.6 thou/uL (1.40-6.50); %Basophils 0.2 % (0.0-1.0); %Eosinophils 1.3 % (0.0-10.0); %Lymphocytes 15.4 % (21.0-51.0); %Monocytes 4.9 % (0.0-10.0); %Neutrophils 78.2 % (42.0-75.0); Hemoglobin 10.6 g/dL (12.0-16.0); Mean Corpuscular HGB CONC 32.4 g/dL (32.0-36.0); Mean Corpuscular Hemoglobin 29.8 pg (27.0-31.0); Mean Corpuscular Volume 91.9 fL (78.0-98.0); Mean Platelet Volume 9.6 fL (7.4-10.4); Platelet Count 194 thou/uL (130-400); RBC Distribution Width 13.6 % (11.5-14.5); Red Blood Cell (RBC) Count 3.56 mill/uL (4.20-5.40); White Blood Cell (WBC) Count 13.5 thou/uL (4.8-10.8)
[2019-12-14 05:58] LABS: INR-International Normal Ratio 1.1; PTT 32.8 SEC (22.9-36.1); Prothrombin Time 13.8 SEC (12.0-14.7)
--- NOTE | 2019-12-14 06:06 | PDOC.FM ---
- Subjective Subjective: Pt continues with abdominal pain. Pain is diffuse. She had 2 bloody BM's overnight. Didn't start bloody BM's until hospitalized. No change in diet. She has not been in contact with COVID positive pt's but does have healthcare exposure. - Objective Vital Signs & Weight: Vital Signs (12 hours) Temp Pulse Resp BP BP BP Pulse Ox 12/14/19 03:48 99.2 F 12/13/19 23:43 99.0 F 65 16 101/55 L 95 12/13/19 20:56 75 119/56 L 12/13/19 20:35 100.5 F H 71 16 95 12/13/19 20:15 75 119/56 L 95 Weight Weight 98.792 kg I&O: 12/12/19 12/13/19 12/14/19 06:59 06:59 06:59 Intake Total 1000 1660 Output Total 75 Balance 1000 1585 Result Diagrams: 12/14/19 05:30 12/13/19 02:51 Phys Exam - Physical Examination Constitutional: NAD HEENT: PERRLA, sclera anicteric Neck: no JVD, full ROM Respiratory: no wheezing, clear to auscultation bilateral Cardiovascular: RRR, no significant murmur Gastrointestinal: no distention abdomen diffusely tender worst in the LLQ, robound tenderness positive decreased bowel sounds Musculoskeletal: no edema, pulses present Neurological: non-focal, normal sensation Psychiatric: normal affect, A&O x 3 Dx/Plan (1) Infectious colitis Code(s): A09 - INFECTIOUS GASTROENTERITIS AND COLITIS, UNSPECIFIED Status: Acute (2) Lactic acidosis Code(s): E87.2 - ACIDOSIS Status: Acute (3) HLD (hyperlipidemia) Code(s): E78.5 - HYPERLIPIDEMIA, UNSPECIFIED Status: Acute Qualifiers: Hyperlipidemia type: unspecified Qualified Code(s): E78.5 - Hyperlipidemia , unspecified (4) HTN (hypertension) Code(s): I10 - ESSENTIAL (PRIMARY) HYPERTENSION Status: Acute Qualifiers: Hypertension type: essential hypertension Qualified Code(s): I10 - Essential (primary) hypertension (5) Hypothyroid Code(s): E03.9 - HYPOTHYROIDISM, UNSPECIFIED Status: Acute Qualifiers: Hypothyroidism type: acquired Qualified Code(s): E03.9 - Hypothyroidism, unspecified (6) Morbid obesity Code(s): E66.01 - MORBID (SEVERE) OBESITY DUE TO EXCESS CALORIES Status: Acute - Plan Plan: # Infectious Colitis vs Ischemic Colitis -continue clindamycin, metronidazole but will consider switching to rocephin and metronidazole -WBC downtrending with abx -LA WNL. -VSS -Bentyl, Zofran, Morphine prn for pain. Scheduled tylenol 1 g q8h to decrease need for morphine. Will not start ibuprofen with hx of cardiac disease. - Advance diet as tolerated. -Stool studies negative so far, pending stool culture. Positive fecal lactoferrin suggesting inflammatory process - will not consult GI at this time but will monitor H/H later this afternoon assessing for drop - add probiotics # CAD -continue home meds # HTN -continue home meds # HLD -continue home meds # Hypothyroidism -continue home meds DVT ppx: ASA, Plavix GERD: Tums Dispo: will admit pt for pain control and to tx with IV abx til can tolerate PO better. Addendum - Attending - Attending Attestation Date/Time: 12/14/19 5665 I personally evaluated the patient and discussed the management with Dr. Guerra. I agree with the History, Examination, Assessment and Plan documented above with any addition or exceptions noted below. Patient here with infectious versus ischemic colitis. She continues on abx, awaiting cultures. Continue pain control, IVF, bowel rest. ADAT.
[2019-12-14] MEDS: Acetaminophen 500 MG TAB PO SCH ×3 (06:51→18:34)
[2019-12-14] MEDS: Sodium Chloride 0.9% 1,000 ML IV SCH (08:23)
[2019-12-14] MEDS: Pantoprazole 40 MG VIAL IVP SCH ×2 (08:24→21:24)
[2019-12-14] MEDS: Carvedilol 3.125 MG TAB PO SCH ×2 (08:28→21:23)
[2019-12-14] MEDS: Isosorbide Mononitrate 20 MG TAB PO SCH (08:28)
[2019-12-14] MEDS: Lisinopril 10 MG TAB PO SCH (08:29)
[2019-12-14] MEDS: Lactated Ringer's 1,000 ML IV SCH (12:15)
[2019-12-14] MEDS: cefTRIAXone\\ROCEPHIN 1 GM in Sodium Chloride 0.9% 100 ML IVPB SCH (14:13)
[2019-12-14] MEDS: Levothyroxine Sodium 112 MCG TAB PO SCH (20:05)
[2019-12-14] MEDS: Levothyroxine Sodium 25 MCG TAB PO SCH (20:05)
[2019-12-14] MEDS: Rosuvastatin 20 MG TAB PO SCH (21:22)
[2019-12-14] MEDS: Clopidogrel Bisulfate 75 MG TAB PO SCH (21:22)
[2019-12-14] MEDS: Aspirin 81 mg Enteric Coated Tablet PO SCH (21:22)
[2019-12-14] MEDS: Amitriptyline HCl 25 MG TAB PO SCH (21:23)
[2019-12-14] MEDS: Amlodipine 5 MG TAB PO SCH (21:23)
[2019-12-15] MEDS: Lactated Ringer's 1,000 ML IV SCH ×2 (00:40→08:43)
[2019-12-15] MEDS: Acetaminophen 500 MG TAB PO SCH ×4 (00:40→20:20)
--- NOTE | 2019-12-15 06:33 | PDOC.FM ---
- Subjective Subjective: Pain is well controlled. She did not require morphine overnight. She is tolerating tylenol. Abdomen remains tender, not distended. - Objective Vital Signs & Weight: Vital Signs (12 hours) Temp Pulse Resp BP BP Pulse Ox 12/14/19 21:23 66 118/61 12/14/19 19:50 96 12/14/19 19:22 98.5 F 66 18 118/61 96 Weight Weight 98.792 kg I&O: 12/13/19 12/14/19 12/15/19 06:59 06:59 06:59 Intake Total 1000 3036 1920 Output Total 125 1150 Balance 1000 2911 770 Result Diagrams: 12/15/19 06:43 12/15/19 06:43 Phys Exam - Physical Examination Constitutional: NAD HEENT: PERRLA, moist MMs Respiratory: no wheezing, clear to auscultation bilateral Cardiovascular: RRR, no significant murmur Gastrointestinal: soft, positive bowel sounds tender to intermediate pressure, no rebound Dx/Plan (1) Infectious colitis Code(s): A09 - INFECTIOUS GASTROENTERITIS AND COLITIS, UNSPECIFIED Status: Acute (2) Lactic acidosis Code(s): E87.2 - ACIDOSIS Status: Acute (3) HLD (hyperlipidemia) Code(s): E78.5 - HYPERLIPIDEMIA, UNSPECIFIED Status: Acute Qualifiers: Hyperlipidemia type: unspecified Qualified Code(s): E78.5 - Hyperlipidemia , unspecified (4) HTN (hypertension) Code(s): I10 - ESSENTIAL (PRIMARY) HYPERTENSION Status: Acute Qualifiers: Hypertension type: essential hypertension Qualified Code(s): I10 - Essential (primary) hypertension (5) Hypothyroid Code(s): E03.9 - HYPOTHYROIDISM, UNSPECIFIED Status: Acute Qualifiers: Hypothyroidism type: acquired Qualified Code(s): E03.9 - Hypothyroidism, unspecified (6) Morbid obesity Code(s): E66.01 - MORBID (SEVERE) OBESITY DUE TO EXCESS CALORIES Status: Acute - Plan Plan: # Infectious Colitis vs Ischemic Colitis -continue rocephin, flagyl -VSS -Bentyl, Zofran, Morphine prn for pain. Scheduled tylenol 1 g q8h to decrease need for morphine. Did not require morphine overnight. Will not start ibuprofen with hx of cardiac disease. - Advance diet from clear liquids - hopefully pt will be able to tolerate this morning -Stool studies negative so far, initial stool culture non-revealing. Positive fecal lactoferrin suggesting inflammatory process - add probiotics # CAD -continue home meds # Hyperglycemia - a1c well controlled # HTN -continue home meds # HLD -continue home meds # Hypothyroidism -continue home meds DVT ppx: ASA, Plavix GERD: Protonix Dispo: Pending discharge based on abdominal pain control, tolerating a diet Addendum - Attending - Attending Attestation Date/Time: 12/15/19 3305 I personally evaluated the patient and discussed the management with Dr. Guerra. I agree with the History, Examination, Assessment and Plan documented above with any addition or exceptions noted below. Patient improved. Continue diet escalation and pain control. Reassess this afternoon, hopefully nearing point of discharge for her colitis.
[2019-12-15] MEDS: metroNIDAZOLE 500 MG in Premix Bag 1 BAG IVPB SCH ×3 (06:38→20:30)
[2019-12-15 06:50] LABS: #Eosinphils 0.2 thou/uL (0.0-0.7); #Lymphocytes 1.5 thou/uL (1.20-3.40); #Monocytes 0.4 thou/uL (0.11-0.59); #Neutrophils 5.9 thou/uL (1.40-6.50); %Basophils 0.3 % (0.0-1.0); %Eosinophils 2.5 % (0.0-10.0); %Lymphocytes 18.8 % (21.0-51.0); %Monocytes 4.6 % (0.0-10.0); %Neutrophils 73.8 % (42.0-75.0); Hemoglobin 11.2 g/dL (12.0-16.0); Mean Corpuscular HGB CONC 32.6 g/dL (32.0-36.0); Mean Corpuscular Hemoglobin 30.1 pg (27.0-31.0); Mean Corpuscular Volume 92.4 fL (78.0-98.0); Mean Platelet Volume 9.5 fL (7.4-10.4); Platelet Count 191 thou/uL (130-400); RBC Distribution Width 13.5 % (11.5-14.5); Red Blood Cell (RBC) Count 3.72 mill/uL (4.20-5.40)
[2019-12-15 07:11] LABS: Anion Gap 9 mmol/L (10-20); BUN (Urea Nitrogen) 4 mg/dL (9.8-20.1); Calc. Creatinine Clearance 146 mL/min (70-130); Calcium 8.6 mg/dL (7.8-10.44); Carbon Dioxide 27 mmol/L (23-31); Chloride 107 mmol/L (98-107); Estimated GFR-MDRD Greater than 90; Glucose 83 mg/dL (80-115); Potassium 3.6 mmol/L (3.5-5.1); Sodium 139 mmol/L (136-145)
[2019-12-15 07:25] LABS: Hemoglobin A1c 5.4 % (4.0-6.0)
[2019-12-15] MEDS: Carvedilol 3.125 MG TAB PO SCH ×2 (08:42→20:21)
[2019-12-15] MEDS: Lisinopril 10 MG TAB PO SCH (08:42)
[2019-12-15] MEDS: Pantoprazole 40 MG VIAL IVP SCH ×2 (08:47→20:22)
[2019-12-15] MEDS: Isosorbide Mononitrate 20 MG TAB PO SCH (08:47)
[2019-12-15] MEDS ORDERED: Lactinex Tablet PO SCH (09:00)
[2019-12-15] MEDS: Lactinex Tablet PO SCH (09:21)
[2019-12-15] MEDS: cefTRIAXone\\ROCEPHIN 1 GM in Sodium Chloride 0.9% 100 ML IVPB SCH (15:00)
[2019-12-15] MEDS: Ondansetron ODT 4 MG TAB PO PRN (16:10)
[2019-12-15 17:41] LABS: Lactic Acid 0.8 mmol/L (0.5-2.2)
--- NOTE | 2019-12-15 19:36 | PQF ---
PILY SANTOS SPENCER DO *r [id number] CLINICAL DOCUMENTATION IMPROVEMENT CLARIFICATION FORM: ICD-10 Updated PLEASE DO AN ADDENDUM TO THE PROGRESS NOTE WITH ANY DOCUMENTATION UPDATES OR ADDITIONS AND CARRY THROUGH TO DC SUMMARY. THANK YOU. DATE: 12/15/2019, 12/16/2019 ATTN: DR. Jory REED Please exercise your independent, professional judgment in responding to the clarification form. Clinical indicators are provided on the bottom of this form for your review. Please check appropriate box(es): [ ] Sepsis present on admission [ x ] Sepsis NOT present on admission [ ] Unable to determine [ ] Due to: Infectious Colitis [ x ] Not Due to: [ ] Infectious Colitis - Initially suspected infectious colitis. With labs, pt's symptoms became apparent this was ischemic colitis and confirmed with CTA abdomen/ pelvis. Abx are warranted in treatment of infectious and ischemic colitis. [ x ] Due to: Ischemic Colitis [ ] Not Due to Ischemic Colitis [ ] Severe sepsis present on admission [ ] Severe Sepsis NOT present on admission [ ] Unable to determine with acute organ dysfunction of: ____ [ ] Septic Shock present on Admission [ ] Septic Shock NOT present on Admission [ ] Unable to determine [ ] Localized infection without sepsis [ ] Other diagnosis [ ] Unable to determine For continuity of documentation, please document condition throughout progress notes and discharge summary. Thank You. CLINICAL INDICATORS - SIGNS / SYMPTOMS / LABS / RESULTS AND LOCATION IN MR WBC 25.2 > 22.4 > 15.5 > 13.5 BANDS 39 > 27 LACTIC ACID 3.3 > 3.6 > 2.5 12/12 TEMP 100.5 12/12 ED REPORT : PT PRESENTS WITH C/O ABD PAIN/CRAMPING, REPORTS DIARRHEA. TEMP 99.2 ED FINAL DX: INFECTIOUS COLITIS, SEPSIS 12/12 H&0 (KLECAN) INFECTIOUS COLITIS, GASTROENTERITIS 12/13 PN (BRIANNA) A/P: INFECTIOUS COLITIS VS ISCHEMIC COLITIS RISK: HX DIVERTICULITIS, DX INFECTIOUS COLITIS, LACTIC ACIDOSIS (H&P /KLECAN) 12/12 TREATMENT: ROCEPHIN IV (12/13 - PRESENT) FLAGYL IV ( 12/12 - PRESENT) THANK YOU! KELLY (This form is maintained as a part of the permanent medical record) 2015 [employer]. All Rights Reserved RACHEL [email or web address] [facility]
[2019-12-15] MEDS: Amlodipine 5 MG TAB PO SCH (20:19)
[2019-12-15] MEDS: Aspirin 81 mg Enteric Coated Tablet PO SCH (20:20)
[2019-12-15] MEDS: Clopidogrel Bisulfate 75 MG TAB PO SCH (20:20)
[2019-12-15] MEDS: Rosuvastatin 20 MG TAB PO SCH (20:20)
[2019-12-15] MEDS: Amitriptyline HCl 25 MG TAB PO SCH (20:20)
[2019-12-15] MEDS: Morphine 4 MG/ML VIAL SLOW IVP PRN (20:29)
[2019-12-16] MEDS: Acetaminophen 500 MG TAB PO SCH ×4 (02:13→21:13)
[2019-12-16] MEDS: Morphine 4 MG/ML VIAL SLOW IVP PRN (05:11)
[2019-12-16] MEDS: metroNIDAZOLE 500 MG in Premix Bag 1 BAG IVPB SCH ×3 (05:12→21:15)
[2019-12-16] MEDS: Levothyroxine Sodium 25 MCG TAB PO SCH (05:12)
[2019-12-16] MEDS: Levothyroxine Sodium 112 MCG TAB PO SCH (05:12)
--- NOTE | 2019-12-16 06:54 | PDOC.FM ---
- Subjective Subjective: Pt continues with abdominal pain. Pain worse after eating yesterday and affected her sleep. She required morphine twice in the last 24 hours. She had 6 episodes of diarrhea overnight. Most recent BM's were pink tinged. No overt bleeding. - Objective Vital Signs & Weight: Vital Signs (12 hours) Temp Pulse Resp BP Pulse Ox 12/15/19 20:19 60 12/15/19 19:55 98.7 F 60 18 136/64 98 Weight Weight 98.792 kg I&O: 12/14/19 12/15/19 12/16/19 06:59 06:59 06:59 Intake Total 3036 3289 1860 Output Total 125 2350 1000 Balance 2911 939 860 Result Diagrams: 12/15/19 06:43 12/15/19 06:43 Phys Exam - Physical Examination Constitutional: NAD HEENT: moist MMs, sclera anicteric Neck: no JVD, full ROM Respiratory: no wheezing, clear to auscultation bilateral Cardiovascular: RRR, no significant murmur Gastrointestinal: soft, no distention, positive bowel sounds able to tolerate palpation but received morphine Musculoskeletal: no edema, pulses present Neurological: non-focal, normal sensation Psychiatric: normal affect, A&O x 3 Skin: no rash, cap refill <2 seconds Dx/Plan (1) Infectious colitis Code(s): A09 - INFECTIOUS GASTROENTERITIS AND COLITIS, UNSPECIFIED Status: Acute (2) Lactic acidosis Code(s): E87.2 - ACIDOSIS Status: Acute (3) HLD (hyperlipidemia) Code(s): E78.5 - HYPERLIPIDEMIA, UNSPECIFIED Status: Acute Qualifiers: Hyperlipidemia type: unspecified Qualified Code(s): E78.5 - Hyperlipidemia , unspecified (4) HTN (hypertension) Code(s): I10 - ESSENTIAL (PRIMARY) HYPERTENSION Status: Acute Qualifiers: Hypertension type: essential hypertension Qualified Code(s): I10 - Essential (primary) hypertension (5) Hypothyroid Code(s): E03.9 - HYPOTHYROIDISM, UNSPECIFIED Status: Acute Qualifiers: Hypothyroidism type: acquired Qualified Code(s): E03.9 - Hypothyroidism, unspecified (6) Morbid obesity Code(s): E66.01 - MORBID (SEVERE) OBESITY DUE TO EXCESS CALORIES Status: Acute - Plan Plan: # Ischemic Colitis - continue abx for a total of 5-7 days. Currently day 4 - Control pain, advance diet as tolerated -Bentyl, Zofran, Morphine prn for pain. Scheduled tylenol 1 g q8h to decrease need for morphine. Did not require morphine overnight. Will not start ibuprofen with hx of cardiac disease. - Pt optimized on vascular disease prevention at this time. Will need to consider CTA abdomen/pelvis to visualize occluded vessels but this can be done in the outpt setting. - Infectious work up negative - continue probiotics # CAD -continue home meds # Hyperglycemia - a1c well controlled # HTN -continue home meds # HLD -continue home meds # Hypothyroidism -continue home meds DVT ppx: ASA, Plavix GERD: Protonix Dispo: Pending discharge based on abdominal pain control, tolerating a diet Addendum - Attending - Attending Attestation Date/Time: 12/16/19 1634 I personally evaluated the patient and discussed the management with Dr. Guerra. I agree with the History, Examination, Assessment and Plan documented above with any addition or exceptions noted below. Patient with continued pain. Will get CTA to further characterize her likely ischemic colitis. GI consulted.
[2019-12-16] MEDS: Lisinopril 10 MG TAB PO SCH (08:32)
[2019-12-16] MEDS: Lactinex Tablet PO SCH (08:32)
[2019-12-16] MEDS: Carvedilol 3.125 MG TAB PO SCH ×2 (08:32→21:14)
[2019-12-16] MEDS: Isosorbide Mononitrate 20 MG TAB PO SCH (08:33)
[2019-12-16] MEDS: Pantoprazole 40 MG VIAL IVP SCH ×2 (08:34→21:15)
[2019-12-16] MEDS: Ondansetron ODT 4 MG TAB PO PRN (11:32)
[2019-12-16] MEDS ORDERED: Iopamidol 370 76% 100 ML VIAL ONE (11:36)
--- NOTE | 2019-12-16 12:37 | CT ---
CT ANGIOGRAM ABDOMEN WITH CONTRAST CT ANGIOGRAM PELVIS WITH CONTRAST: (Computed tomographic angiography, abdominal aorta, with contrast material, and imaging postprocessin g) HISTORY: 59-year-old female with left colitis. Rule out ischemic colitis. TECHNIQUE: IV injection of iodinated contrast. Arterial bolus chasing technique. Scan acquisition from top of abdominal aorta through ischial tuberosities. 3-D MIP reconstructions. FINDINGS: Calcified atherosclerotic plaque throughout the abdominal aorta, especially infrarenal aorta, and thr oughout the bilateral common iliac arteries, extending into the proximal portions of the left external iliac artery, and throughout bilateral internal iliac arteries. Fusiform ectasia of infraren al abdominal aorta up to 2.5 x 2.2 cm, but no aneurysm or high-grade stenosis of the aorta. No stenosis identified involving celiac, hepatic, splenic, bilateral renal, superior mesenteric, or i nferior mesenteric, arteries. There has been interval improvement in the colitis involving the splenic flexure and proximal descend ing colon. No abscess. No small bowel dilation. Suture lines along narrowed stomach. No pathology of liver, adrenals, kidneys, pancreas, spleen, or urinary bladder, identified... IMPRESSION: 1) atherosclerosis of abdominal aorta and its branches. 2) no evidence of high-grade arterial stenosis, including proximal and mid portions of superior mesen teric artery and inferior mesenteric artery. 3) interval improvement in the left sided colitis. 4) status post bariatric surgery.
[2019-12-16] MEDS: cefTRIAXone\\ROCEPHIN 1 GM in Sodium Chloride 0.9% 100 ML IVPB SCH (13:35)
[2019-12-16 20:37] VITALS: TEMP 98.9
[2019-12-16] MEDS: Clopidogrel Bisulfate 75 MG TAB PO SCH (21:13)
[2019-12-16] MEDS: Amlodipine 5 MG TAB PO SCH (21:13)
[2019-12-16] MEDS: Amitriptyline HCl 25 MG TAB PO SCH (21:14)
[2019-12-16] MEDS: Aspirin 81 mg Enteric Coated Tablet PO SCH (21:14)
[2019-12-16] MEDS: Rosuvastatin 20 MG TAB PO SCH (21:14)
[2019-12-17] MEDS: Acetaminophen 500 MG TAB PO SCH ×2 (02:27→06:21)
[2019-12-17] MEDS: Levothyroxine Sodium 25 MCG TAB PO SCH (06:21)
[2019-12-17] MEDS: Levothyroxine Sodium 112 MCG TAB PO SCH (06:21)
[2019-12-17] MEDS: metroNIDAZOLE 500 MG in Premix Bag 1 BAG IVPB SCH (06:22)
--- NOTE | 2019-12-17 07:07 | PDOC.FM ---
- Subjective Subjective: Pt is doing much better today. She had a few BM's overnight. She tolerated a full liquid diet last night. Otherwise she has no complaints. - Objective Vital Signs & Weight: Vital Signs (12 hours) Temp Pulse Resp BP Pulse Ox 12/16/19 21:13 57 L 12/16/19 20:00 98.9 F 57 L 18 136/63 99 Weight Weight 98.792 kg I&O: 12/16/19 12/17/19 12/18/19 06:59 06:59 06:59 Intake Total 1860 920 Output Total 1000 Balance 860 920 Result Diagrams: 12/15/19 06:43 12/15/19 06:43 Phys Exam - Physical Examination Constitutional: NAD HEENT: PERRLA, moist MMs Respiratory: no wheezing, clear to auscultation bilateral Cardiovascular: RRR, no significant murmur Gastrointestinal: soft, non-tender, no distention Musculoskeletal: no edema, pulses present Dx/Plan (1) Infectious colitis Code(s): A09 - INFECTIOUS GASTROENTERITIS AND COLITIS, UNSPECIFIED Status: Acute (2) Lactic acidosis Code(s): E87.2 - ACIDOSIS Status: Acute (3) HLD (hyperlipidemia) Code(s): E78.5 - HYPERLIPIDEMIA, UNSPECIFIED Status: Acute Qualifiers: Hyperlipidemia type: unspecified Qualified Code(s): E78.5 - Hyperlipidemia , unspecified (4) HTN (hypertension) Code(s): I10 - ESSENTIAL (PRIMARY) HYPERTENSION Status: Acute Qualifiers: Hypertension type: essential hypertension Qualified Code(s): I10 - Essential (primary) hypertension (5) Hypothyroid Code(s): E03.9 - HYPOTHYROIDISM, UNSPECIFIED Status: Acute Qualifiers: Hypothyroidism type: acquired Qualified Code(s): E03.9 - Hypothyroidism, unspecified (6) Morbid obesity Code(s): E66.01 - MORBID (SEVERE) OBESITY DUE TO EXCESS CALORIES Status: Acute - Plan Plan: # Ischemic Colitis - continue abx for a total of 5 days. Currently day 5 - Control pain, advance diet to softs. -Tylenol scheduled, morphine prn - Continue home medications - Infectious work up negative - continue probiotics - CTA abdomen/pelvis revealed atherosclerosis - GI consulted; appreciate rec's # CAD -continue home meds # Hyperglycemia - a1c well controlled # HTN -continue home meds # HLD -continue home meds # Hypothyroidism -continue home meds DVT ppx: ASA, Plavix GERD: Protonix Dispo: Pending discharge based on abdominal pain control, tolerating a diet Addendum - Attending - Attending Attestation Date/Time: 12/17/19 1213 I personally evaluated the patient and discussed the management with Dr. Guerra. I agree with the History, Examination, Assessment and Plan documented above with any addition or exceptions noted below. Patient improved. GI agrees with our assessment of ischemic colitis. Pain now improved, tolerating diet. Stable for discharge.
[2019-12-17 07:41] VITALS: BP 141/79
[2019-12-17] MEDS: Carvedilol 3.125 MG TAB PO SCH (08:35)
[2019-12-17] MEDS: Lisinopril 10 MG TAB PO SCH (08:35)
[2019-12-17] MEDS: Lactinex Tablet PO SCH (08:35)
[2019-12-17] MEDS: Pantoprazole 40 MG VIAL IVP SCH (08:36)
[2019-12-17] MEDS: Isosorbide Mononitrate 20 MG TAB PO SCH (09:28)
--- NOTE | 2019-12-17 10:35 | CON ---
DATE OF CONSULTATION: 12/16/2019 NAME OF REFERRING SERVICE: Family Practice Service. REASON FOR CONSULTATION: Abdominal pain, mild hematochezia, diarrhea, and CAT scan showing colitis for the left colon. HISTORY OF PRESENT ILLNESS: Ivelisse Bauer is a very pleasant 59-year-old female with history of coronary artery disease, status post CABG,, hyperlipidemia, hypothyroidism. The patient is known to have sigmoid diverticular disease and had a colonoscopy in the past. The patient was doing well until past Saturday when she started having severe lower abdominal cramp. The pain was sudden in onset and was felt across the lower abdomen. The pain was cramping in nature. She felt nauseous and started having diaphoresis. However, she has had no chest pain, any palpitation, or dyspnea. She had no hematochezia at home. However, after she was hospitalized, she did have any hematochezia for the last couple of days. The bleeding she had actually is described as most likely as mucoid with blood stained__. She had an abdominal CAT scan on admission and was found to have evidence of what appears to be colitis . She was on antibiotic therapy. She had clear liquid diet. She continues to complain of abdominal pain, although abdominal pain is much much less than before. She had more of a diarrhea, and she feels she is passing some fairly large amount of mucus with some blood staining. She has had 6 stools today. She also complains of urgency of bowel movement, and she is afraid of losing her bowel control. She had no similar episodes in the past. She also had a CT angiogram done today, which revealed no significant occlusion of mesenteric vasculature_.. She does have a 2-cm size abdominal aortic aneurysm. The patient has had a colonoscopy by me in 2019 for cancer screening. She had at that time sigmoid diverticular disease. She had no other relevant history ALLERGIES: PENICILLIN, SULFA, AND CLINDAMYCIN. MEDICAL ILLNESS: 1. Coronary artery disease, stent placement. 2. Hypertension. 3. Hyperlipidemia. 4. Hypothyroidism. 5. Diverticular disease. SURGERIES: 1. Coronary artery bypass graft. 2. Appendectomy. 4. Gastric sleeve. 5.colonoscopy.. FAMILY HISTORY: Father with heart disease, had TX at age 37. SOCIAL HISTORY: Former smoker. Does not drink alcohol. No drug abuse. MEDICATIONS: Medication list reviewed, which include: 1. Amitriptyline. 2. Coreg. 3. . 4. Aspirin. 5. Levothyroxine. 6. Clopidogrel. 7. Ibuprofen. 8. Amlodipine. 9. Isordil. 10. Enalapril. 11. Ranexa. REVIEW OF SYSTEMS: Ten-point system reviewed. CONSTITUTIONAL: No history of any fever or chills. No weight loss. Has good exercise tolerance. HEAD: No chronic headache. No syncope. EYES: No impaired vision or diplopia. EARS: No hearing loss. No discharge or ear pain. NOSE: No nosebleed. THROAT: No sore throat or dysphagia. NECK: No stiffness in neck or limitation of movement. LUNGS: No chronic coughing, hemoptysis, or dyspnea. CARDIOVASCULAR: No chest pain. No palpitation. No dyspnea, orthopnea, or PND. GI: Abdominal pain, diarrhea, hematochezia, nausea to begin with. No melena. She had diarrhea with passing blood stained mucus. : No dysuria, hematuria, or frequency of urination. MUSCULOSKELETAL: Nonrelevant. NEUROENDOCRINE: Nonrelevant. PSYCHIATRY: Nonrelevant. PHYSICAL EXAMINATION: GENERAL: She is obese, appears comfortable, in no acute distress. She is awake , alert, and communicative. VITAL SIGNS: Afebrile. Her pulse is 58, blood pressure 120/76 . NECK: Supple. No adenitis or thyromegaly noted. CARDIOVASCULAR: Normal first and second heart sounds. LUNGS: Clear to auscultation. ABDOMEN: Nondistended. Abdomen is very soft. Abdomen is mildly tender over the left lower quadrant, left lumbar area. There is no rebound or guarding. Active bowel sounds. EXTREMITIES: Reveal no edema. DIAGNOSTIC STUDIES: She has had 2 CAT scans of the abdomen. One was _a IV contrast CAT scan and the other one was CT angiogram. Basically showed sigmoid diverticular disease and colitis of the left colon, most likely suggestive of ischemic colitis. LABORATORY DATA: From yesterday, WBC dropping to 8,000 from 25,000, hemoglobin 11.2, hematocrit 34.4, MCV 92.4, platelet count 191,000, . Chem-7 is normal. Creatinine 0.63, BUN 4, AST, ALT, alkaline phosphatase normal_. CLINICAL IMPRESSION: 1. A 59-year-old female with known coronary artery disease here with abdominal pain, diarrhea. The clinical picture is suggestive of ischemic colitis. The CAT scan does show findings of colitis, very suggest of _ischemic colitis. She is actually doing much better than what she was when she came here .She is still having multiple loose stools . 2. Hypertension. 3. Coronary artery disease. 4. Hypothyroidism. 5. Diverticular disease. 6. Status post coronary artery bypass graft and stent placement. RECOMMENDATION: I had a long talk with _the patient and explained to her that she has history of colitis, and she is going to get better slowly She is advised to continue antibiotics.Her diet can be advanced to a mechanical soft diet tomorrow. Hopefully, she can be discharged home tomorrow. . Job ID: [id number] [facility]
--- NOTE | 2019-12-17 15:17 | PRG ---
DATE OF SERVICE: 12/17/2019 SUBJECTIVE: This 59-year-old was hospitalized over the weekend with abdominal cramping, diarrhea, hematochezia. The CAT scan shows findings of colitis on the left side. The clinical picture is suggestive of ischemic colitis. Her stool studies including C difficile, shiga toxin, culture, Campylobacter, everything came negative. She is actually feeling a whole lot better today. Abdominal pain is markedly improved. She is still having diarrhea , but the frequency is lot less. She is tolerating diet today. OBJECTIVE: GENERAL: Appears comfortable. VITAL SIGNS: Afebrile, pulse is 70, blood pressure 120/76_. HEENT: Conjunctivae clear. CARDIOVASCULAR: First and second sounds are heard. LUNGS: Clear to auscultation. ABDOMEN: Soft. Abdomen is nontender today. There is no organomegaly or mass. IMPRESSION: Acute colitis most likely ischemic. She is doing much better today. From GI standpoint, she can be discharged home. She is advised to come back if she has recurrence of symptoms. Job ID: [id number] [facility]
--- NOTE | 2019-12-18 13:16 | DIS ---
DATE OF ADMISSION: 12/13/2019 DATE OF DISCHARGE: 12/17/2019 RESIDENT: Kedar Guerra DO ADMITTING ATTENDING: Dr. Kendra Nicholas. DISCHARGE ATTENDING: Dr. Vick Santamaria. CONSULTS: Dr. Major, GI. PROCEDURES: 1. CT abdomen and pelvis without contrast revealed long segment inflammatory changes involving the left hemicolon. An infectious or inflammatory colitis suspected. Ischemic colitis could not be entirely excluded, but less favorable. 2. Abdomen and pelvis CTA on 12/16/2019 revealed atherosclerosis of abdominal aorta and its branches. No evidence of high-grade arterial stenosis, including proximal and midportions of the superior mesenteric artery and inferior mesenteric artery. Interval improvement on the left-sided colitis. Status post bariatric surgery. PRIMARY DIAGNOSES: 1. Ischemic colitis. 2. Hyperlipidemia. 3. Hypertension. 4. Obesity. 5. Lactic acidosis. SECONDARY DIAGNOSES: 1. History of coronary artery disease. 2. Hypothyroidism. DISCHARGE MEDICATIONS: 1. Amitriptyline 25 mg p.o. at bedtime. 2. Coreg 3.125 mg p.o. b.i.d. 3. Crestor 20 mg p.o. at bedtime. 4. Synthroid 137 mcg p.o. q.a.m. 5. Aspirin 81 mg p.o. at bedtime. 6. Clopidogrel 75 mg p.o. at bedtime. 7. Norvasc 5 mg p.o. at bedtime. 8. Ranexa 500 mg p.o. daily. 9. Lisinopril 10 mg p.o. daily. 10. Isosorbide mononitrate 10 mg p.o. daily. 11. Lactobacillus 1 mg p.o. daily. 12. Zofran 4 mg p.o. q.6 p.r.n. nausea. 13. Protonix 40 mg p.o. daily for 30 days. Discontinued home medications, ibuprofen 800 mg p.o. b.i.d. p.r.n. pain. HISTORY OF PRESENT ILLNESS/HOSPITAL COURSE: Ivelisse Bauer is a 59-year-old female with past medical history significant for coronary artery disease with nine stents, hyperlipidemia, hypertension, hypothyroidism, and diverticula, coming in with a chief complaint of abdominal pain and diarrhea. She did report chills as well. She had a total of 12 episodes of loose diarrhea with some bright red blood per rectum. She did have a colonoscopy with Dr. Major 1 year ago and it did show some diverticula. It was suspected that the patient had infectious colitis initially, but the patient had negative stool studies including negative stool culture, negative C diff, negative Campylobacter antigen assay, negative Shiga toxin test, negative E coli 0157 culture, negative rapid parasite screen. She did have an elevated lactoferrin and an elevated lactic acid on arrival. Lactic acid resolved with fluid resuscitation. The patient's white blood cell count was elevated at 25.2 and resolved on discharge as it was 8.0 on 12/15/2019. The patient was treated with a total of a 5-day course of ceftriaxone and metronidazole. The patient continued to have symptoms, but each day her pain improved. She did require morphine in the beginning, but she was able to be titrated off it and the pain was controlled with just Tylenol. Due to the patient continuing to have abdominal pain, she became worried, so we consulted Dr. Major. At this time , we also got a CTA of the abdomen and pelvis. This revealed atherosclerosis, which was suspected as she has a significant history of coronary artery disease. This became the new differential, ischemic colitis, and Dr. Major agreed with our workup and plan. On day of discharge, the patient was tolerating p.o. intake. She was still having some episodes of diarrhea, but this was all manageable at that time. We discussed followup next week. Repleted electrolytes as needed. Her medications were already optimized for atherosclerosis. DISPOSITION: Stable. DISCHARGE INSTRUCTIONS: 1. Location: [facility]. 2. Diet: Heart healthy. 3. Activity: Ad livier. 4. Followup: Follow up with [facility] within a week. Job ID: [id number] [facility]
== END 2019-12-17 12:31 | disposition home or self-care (01) | DRG 393 ==
LOC: ERS 21:00 → ONC 12-13 01:15
PROVIDERS: ADMIT Internal Medicine; ATTEND Student in an Organized Health Care Education/Training Program
DX: K55.039 Acute (reversible) ischemia of large intestine, extent unspecified (principal); A41.9 Sepsis, unspecified organism; I25.110 Atherosclerotic heart disease of native coronary artery with unstable angina pectoris; E87.2 Acidosis; E78.5 Hyperlipidemia, unspecified; I10 Essential (primary) hypertension; E03.9 Hypothyroidism, unspecified; E66.01 Morbid (severe) obesity due to excess calories; R73.9 Hyperglycemia, unspecified; Z95.5 Presence of coronary angioplasty implant and graft; Z88.0 Allergy status to penicillin; Z88.2 Allergy status to sulfonamides; Z88.1 Allergy status to other antibiotic agents; Z95.1 Presence of aortocoronary bypass graft; Z90.49 Acquired absence of other specified parts of digestive tract; Z90.710 Acquired absence of both cervix and uterus; Z98.84 Bariatric surgery status; Z87.891 Personal history of nicotine dependence; Z68.34 Body mass index [BMI] 34.0-34.9, adult
CPT/HCPCS: 36415; 74174; 74177; 80048; 80053; 81003; 83036; 83605; 83630; 83690; 85025; 85610; 85730; 86850; 86900; 86901; 87015; 87040; 87045; 87046; 87206; 87324; 87328; 87329; 87427; 87449; 96361; 96365; 96366; 96372; 96375; C9113; J0500; J0696; J0744; J1885; J2270; J2405; J2543; J3370; J3480; J3490; J7030; Q0162; Q9967; S0028

== ENCOUNTER 2021-07-19 07:41 | Outpatient (CLI) | payer OTHER | END 2021-07-19 07:42 | disposition home or self-care (01) | LOC: SCSMRI 07:41 | PROVIDERS: ATTEND Internal Medicine Rheumatology | DX: M25.552 Pain in left hip (principal); M16.12 Unilateral primary osteoarthritis, left hip; M25.452 Effusion, left hip; S76.012A Strain of muscle, fascia and tendon of left hip, initial encounter; M25.852 Other specified joint disorders, left hip; M65.88 Other synovitis and tenosynovitis, other site ==

== ENCOUNTER 2023-06-13 01:53 | Observation (INO) | payer BC ==
[2023-06-13 02:24] LABS: #Eosinphils 0.2 thou/uL (0.0-0.7); #Monocytes 0.5 thou/uL (0.11-0.59); #Neutrophils 2.8 thou/uL (1.40-6.50); %Basophils 0.5 % (0.0-1.0); %Lymphocytes 42.1 % (21.0-51.0); %Monocytes 8.7 % (0.0-10.0); %Neutrophils 45.4 % (42.0-75.0); Hematocrit 35.2 % (36.0-47.0); Hemoglobin 11.1 g/dL (12.0-16.0); Mean Corpuscular HGB CONC 31.5 g/dL (32.0-36.0); Mean Corpuscular Volume 91.9 fl (78.0-98.0); Mean Platelet Volume 11.1 fL (7.4-10.4); Platelet Count 247 10x3/uL (130-400); RBC Distribution Width 16.2 % (11.5-14.5); Red Blood Cell (RBC) Count 3.83 mill/uL (4.20-5.40); White Blood Cell (WBC) Count 6.1 10x3/uL (4.8-10.8)
[2023-06-13 02:42] LABS: INR-International Normal Ratio 0.9
[2023-06-13 02:43] LABS: PTT 27.7 sec (22.9-36.1)
[2023-06-13 02:46] LABS: ALT (SGPT) 11 U/L (8-55); AST (SGOT) 16 U/L (5-34); Albumin 4.1 g/dL (3.4-4.8); Alkaline Phosphatase 96 U/L (40-110); Anion Gap 13 mmol/L (10-20); BUN (Urea Nitrogen) 10 mg/dL (9.8-20.1); Bilirubin, Total 0.3 mg/dL (0.2-1.2); Calc. Creatinine Clearance 0 mL/min (70-130); Carbon Dioxide 23 mmol/L (23-31); Chloride 108 mmol/L (98-107); Estimated GFR 78; Globulin 2.4 g/dL (2.4-3.5); Glucose 98 mg/dL (80-115); Lipase 24 U/L (8-78); Potassium 3.3 mmol/L (3.5-5.1); Protein, Total 6.5 g/dL (5.8-8.1); Sodium 141 mmol/L (136-145)
[2023-06-13 02:50] LABS: Troponin I Less than 0.010 ng/mL (< 0.028)
[2023-06-13] MEDS ORDERED: Ondansetron PF 4 MG/2 ML Vial ONE (03:27)
[2023-06-13] MEDS ORDERED: Ondansetron ODT 4 MG TAB SL PRN (03:45)
[2023-06-13] MEDS ORDERED: Ondansetron PF 4 MG/2 ML Vial IVP PRN (03:45)
[2023-06-13] MEDS ORDERED: Nitroglycerin 0.4 MG TAB (25 Tab Bottle) SL PRN (04:02)
[2023-06-13] MEDS ORDERED: Nitroglycerin 2% Ointment 1 INCH/1 GM Packet ONE (04:06)
[2023-06-13] MEDS ORDERED: Potassium Chloride 20 MEQ TAB PO SCH (05:00)
[2023-06-13 05:37] LABS: Troponin I Less than 0.010 ng/mL (< 0.028)
[2023-06-13] MEDS ORDERED: Potassium Chloride 20 MEQ TAB ONE (05:42)
[2023-06-13 06:34] LABS: Hemoglobin A1c 5.3 % (4.0-6.0)
[2023-06-13] MEDS: Levothyroxine Sodium 112 MCG TAB PO SCH (07:03)
[2023-06-13] MEDS: Levothyroxine Sodium 25 MCG TAB PO SCH (07:03)
[2023-06-13] MEDS ORDERED: Rosuvastatin 20 MG TAB PO SCH (09:00)
[2023-06-13] MEDS ORDERED: Levothyroxine Sodium 125 MCG TAB PO SCH (09:00)
[2023-06-13 09:26] LABS: Troponin I Less than 0.010 ng/mL (< 0.028)
[2023-06-13] MEDS ORDERED: Lisinopril 10 MG TAB ONE (09:53)
[2023-06-13] MEDS ORDERED: Aspirin Chewable 81 MG TAB ONE (09:53)
[2023-06-13] MEDS ORDERED: Acetaminophen 325 MG TAB ONE (09:53)
[2023-06-13] MEDS: Aspirin Chewable 81 MG TAB PO SCH (10:02)
[2023-06-13] MEDS: Lactated Ringer's 1,000 ML IV SCH ×2 (10:03→17:36)
[2023-06-13] MEDS: Lisinopril 10 MG TAB PO SCH ×2 (10:03→20:16)
[2023-06-13] MEDS ORDERED: Sodium Chloride 0.9% 100 ML ONE (11:48)
[2023-06-13] MEDS: sulfaSALAzine 500 MG TAB PO SCH ×2 (14:06→20:12)
[2023-06-13] MEDS: Isosorbide Mononitrate 20 MG TAB PO SCH (14:06)
[2023-06-13] MEDS: Ranolazine 500 MG ER.TAB PO SCH ×2 (14:06→20:13)
[2023-06-13 16:13] VITALS: BMI 33.7
[2023-06-13] MEDS: Acetaminophen 325 MG TAB PO PRN (18:45)
[2023-06-13] MEDS: Rosuvastatin 20 MG TAB PO SCH (20:13)
[2023-06-13] MEDS: Clopidogrel Bisulfate 75 MG TAB PO SCH (20:13)
[2023-06-13] MEDS: hydrOXYzine 25 MG TAB PO SCH (20:21)
[2023-06-13] MEDS ORDERED: Aspirin 81 mg Enteric Coated Tablet PO SCH (21:00)
[2023-06-14 04:50] LABS: #Eosinphils 0.2 thou/uL (0.0-0.7); #Monocytes 0.6 thou/uL (0.11-0.59); #Neutrophils 2.2 thou/uL (1.40-6.50); %Basophils 0.7 % (0.0-1.0); %Eosinophils 2.8 % (0.0-10.0); %Lymphocytes 45.5 % (21.0-51.0); %Monocytes 10.4 % (0.0-10.0); %Neutrophils 40.4 % (42.0-75.0); Hematocrit 36.5 % (36.0-47.0); Hemoglobin 11.4 g/dL (12.0-16.0); Mean Corpuscular HGB CONC 31.2 g/dL (32.0-36.0); Mean Corpuscular Hemoglobin 28.1 pg (27.0-31.0); Mean Corpuscular Volume 89.9 fl (78.0-98.0); Mean Platelet Volume 11.3 fL (7.4-10.4); Platelet Count 245 10x3/uL (130-400); RBC Distribution Width 15.9 % (11.5-14.5); Red Blood Cell (RBC) Count 4.06 mill/uL (4.20-5.40); White Blood Cell (WBC) Count 5.4 10x3/uL (4.8-10.8)
[2023-06-14 05:14] LABS: ALT (SGPT) 10 U/L (8-55); AST (SGOT) 14 U/L (5-34); Albumin 3.9 g/dL (3.4-4.8); Alkaline Phosphatase 86 U/L (40-110); Anion Gap 13 mmol/L (10-20); BUN (Urea Nitrogen) 8 mg/dL (9.8-20.1); Bilirubin, Total 0.3 mg/dL (0.2-1.2); Calc. Creatinine Clearance 108 mL/min (70-130); Calcium 8.8 mg/dL (7.8-10.44); Carbon Dioxide 23 mmol/L (23-31); Cardiac Risk 3.8 (Less than 4.5); Chloride 109 mmol/L (98-107); Cholesterol 187 mg/dl (< 200 Desired); Estimated GFR 81; Globulin 2.4 g/dL (2.4-3.5); Glucose 102 mg/dL (80-115); HDL Cholesterol 49 mg/dL (>60 Neg Risk); LDL Cholesterol, Calculated 123 mg/dL; Potassium 3.8 mmol/L (3.5-5.1); Protein, Total 6.3 g/dL (5.8-8.1); Sodium 141 mmol/L (136-145); Triglycerides 76 mg/dL (Less than 150)
[2023-06-14] MEDS: Levothyroxine Sodium 25 MCG TAB PO SCH (05:27)
[2023-06-14] MEDS: Levothyroxine Sodium 112 MCG TAB PO SCH (05:27)
[2023-06-14] MEDS: sulfaSALAzine 500 MG TAB PO SCH ×2 (08:06→20:11)
[2023-06-14] MEDS: Isosorbide Mononitrate 20 MG TAB PO SCH (08:06)
[2023-06-14] MEDS: Ranolazine 500 MG ER.TAB PO SCH ×2 (08:07→20:12)
[2023-06-14] MEDS: Lisinopril 10 MG TAB PO SCH ×2 (08:07→20:11)
[2023-06-14] MEDS ORDERED: Regadenoson 0.4 MG/5 ML SYRINGE ONE (08:43)
[2023-06-14] MEDS: Aspirin Chewable 81 MG TAB PO SCH (10:00)
[2023-06-14] MEDS: Acetaminophen 325 MG TAB PO PRN (11:28)
[2023-06-14] MEDS: hydrOXYzine 25 MG TAB PO SCH (20:11)
[2023-06-14] MEDS: Rosuvastatin 20 MG TAB PO SCH (20:12)
[2023-06-14] MEDS: Clopidogrel Bisulfate 75 MG TAB PO SCH (20:12)
[2023-06-15 04:35] LABS: #Eosinphils 0.2 thou/uL (0.0-0.7); #Monocytes 0.6 thou/uL (0.11-0.59); #Neutrophils 3.3 thou/uL (1.40-6.50); %Basophils 0.4 % (0.0-1.0); %Eosinophils 2.2 % (0.0-10.0); %Lymphocytes 40.8 % (21.0-51.0); %Monocytes 8.9 % (0.0-10.0); %Neutrophils 47.6 % (42.0-75.0); Hematocrit 34.4 % (36.0-47.0); Mean Corpuscular Hemoglobin 28.5 pg (27.0-31.0); Mean Corpuscular Volume 89.1 fl (78.0-98.0); Mean Platelet Volume 11.5 fL (7.4-10.4); Platelet Count 263 10x3/uL (130-400); RBC Distribution Width 15.8 % (11.5-14.5); Red Blood Cell (RBC) Count 3.86 mill/uL (4.20-5.40); White Blood Cell (WBC) Count 6.9 10x3/uL (4.8-10.8)
[2023-06-15 05:01] LABS: ALT (SGPT) 10 U/L (8-55); AST (SGOT) 12 U/L (5-34); Alkaline Phosphatase 85 U/L (40-110); Anion Gap 13 mmol/L (10-20); BUN (Urea Nitrogen) 10 mg/dL (9.8-20.1); Bilirubin, Total 0.3 mg/dL (0.2-1.2); Calc. Creatinine Clearance 98 mL/min (70-130); Calcium 8.6 mg/dL (7.8-10.44); Carbon Dioxide 24 mmol/L (23-31); Chloride 107 mmol/L (98-107); Estimated GFR 71; Globulin 2.2 g/dL (2.4-3.5); Glucose 112 mg/dL (80-115); Potassium 3.8 mmol/L (3.5-5.1); Protein, Total 6.2 g/dL (5.8-8.1); Sodium 140 mmol/L (136-145)
[2023-06-15 05:12] LABS: Troponin I Less than 0.010 ng/mL (< 0.028)
[2023-06-15] MEDS: Levothyroxine Sodium 25 MCG TAB PO SCH (05:39)
[2023-06-15] MEDS: Levothyroxine Sodium 112 MCG TAB PO SCH (05:39)
[2023-06-15 07:36] VITALS: TEMP 97.8
[2023-06-15] MEDS: Lisinopril 10 MG TAB PO SCH ×2 (08:19→11:12)
[2023-06-15] MEDS: Isosorbide Mononitrate 20 MG TAB PO SCH ×2 (08:19→11:12)
[2023-06-15] MEDS: sulfaSALAzine 500 MG TAB PO SCH (10:20)
[2023-06-15] MEDS: Ranolazine 500 MG ER.TAB PO SCH (10:21)
[2023-06-15] MEDS ORDERED: Aspirin 81 mg Enteric Coated Tablet ONE (10:24)
[2023-06-15] MEDS: Aspirin Chewable 81 MG TAB PO SCH (10:24)
[2023-06-15 12:01] VITALS: BP 158/95
== END 2023-06-15 14:47 | disposition home or self-care (01) ==
LOC: ERS 01:53 → ERHOLD 03:55 → 2SW 15:48
PROVIDERS: ADMIT Family Medicine; ATTEND Family Medicine
DX: R07.89 Other chest pain (principal); I25.10 Atherosclerotic heart disease of native coronary artery without angina pectoris; E87.6 Hypokalemia; D64.9 Anemia, unspecified; I10 Essential (primary) hypertension; E78.5 Hyperlipidemia, unspecified; E03.9 Hypothyroidism, unspecified; G47.00 Insomnia, unspecified; K57.30 Diverticulosis of large intestine without perforation or abscess without bleeding; M19.90 Unspecified osteoarthritis, unspecified site; R73.03 Prediabetes; I25.2 Old myocardial infarction; G62.9 Polyneuropathy, unspecified; E66.9 Obesity, unspecified; Z68.33 Body mass index [BMI] 33.0-33.9, adult; Z95.1 Presence of aortocoronary bypass graft; Z88.0 Allergy status to penicillin; Z88.1 Allergy status to other antibiotic agents; Z88.2 Allergy status to sulfonamides; Z79.82 Long term (current) use of aspirin; Z79.890 Hormone replacement therapy; Z79.899 Other long term (current) drug therapy; Z79.891 Long term (current) use of opiate analgesic; Z95.5 Presence of coronary angioplasty implant and graft
CPT/HCPCS: 36415; 71045; 78452; 80053; 80061; 83036; 83690; 83735; 84443; 84484; 85025; 85610; 85730; 93005; 93010; 93017; 94760; 96372; 96374; A9502; G0378; J1650; J2405; J2785; J3490; J7120

== ENCOUNTER 2023-07-26 08:23 | Inpatient (IN) | payer BC ==
[2023-07-26] MEDS ORDERED: fentaNYL 50 mcg/mL 1 mL Vial ONE ×7 (09:52→19:23)
[2023-07-26] MEDS ORDERED: Ondansetron PF 4 MG/2 ML Vial ONE ×4 (09:52→17:17)
[2023-07-26 10:30] LABS: #Eosinphils 0.2 thou/uL (0.0-0.7); #Monocytes 0.5 thou/uL (0.11-0.59); #Neutrophils 2.9 thou/uL (1.40-6.50); %Basophils 0.5 % (0.0-1.0); %Eosinophils 2.7 % (0.0-10.0); %Lymphocytes 35.7 % (21.0-51.0); %Monocytes 9.1 % (0.0-10.0); %Neutrophils 51.6 % (42.0-75.0); Hematocrit 33.7 % (36.0-47.0); Hemoglobin 10.7 g/dL (12.0-16.0); Mean Corpuscular HGB CONC 31.8 g/dL (32.0-36.0); Mean Corpuscular Hemoglobin 28.2 pg (27.0-31.0); Mean Corpuscular Volume 88.9 fl (78.0-98.0); Mean Platelet Volume 11.5 fL (7.4-10.4); Platelet Count 258 10x3/uL (130-400); RBC Distribution Width 14.7 % (11.5-14.5); Red Blood Cell (RBC) Count 3.79 mill/uL (4.20-5.40); White Blood Cell (WBC) Count 5.6 10x3/uL (4.8-10.8)
[2023-07-26 10:53] LABS: Troponin I Less than 0.010 ng/mL (< 0.028)
[2023-07-26 10:56] LABS: ALT (SGPT) 7 U/L (8-55); AST (SGOT) 14 U/L (5-34); Alkaline Phosphatase 83 U/L (40-110); Anion Gap 12 mmol/L (10-20); BUN (Urea Nitrogen) 12 mg/dL (9.8-20.1); Bilirubin, Total 0.4 mg/dL (0.2-1.2); Calc. Creatinine Clearance 0 mL/min (70-130); Calcium 8.9 mg/dL (7.8-10.44); Carbon Dioxide 23 mmol/L (23-31); Chloride 110 mmol/L (98-107); Estimated GFR 64; Globulin 2.4 g/dL (2.4-3.5); Glucose 86 mg/dL (80-115); Lipase 16 U/L (8-78); Potassium 3.9 mmol/L (3.5-5.1); Protein, Total 6.4 g/dL (5.8-8.1); Sodium 141 mmol/L (136-145)
[2023-07-26] MEDS ORDERED: Ondansetron PF 4 MG/2 ML Vial IVP PRN (12:03)
[2023-07-26] MEDS ORDERED: Ipratropium/Albuterol 3 ML NEB NEB PRN (12:03)
[2023-07-26] MEDS ORDERED: SUGAMMADEX SODIUM 200 MG/2 ML VIAL ONE ×2 (12:16→16:56)
[2023-07-26 12:57] LABS: Bacteria/HPF None Seen HPF (None Seen); Bilirubin Negative (Negative); Blood, Urine Negative (Negative); CAUTI Indications for Culture Pelvic or flank pain; Clarity Clear (Clear); Glucose, Urine (Dipstick) Normal (Negative); Ketone, Urine Negative (Negative); Leukocyte Negative Leu/uL (Negative); Nitrite Negative (Negative); Protein, Urine (Dipstick) Negative (Neg-Trace); RBC/HPF 0-3 HPF (0-3); Specific Gravity, Urine 1.033 (1.002-1.036); Squamous Epithelial 0-3 HPF (0-3); Urobilinogen Normal mg/dL (Less than 2); WBC/HPF 0-3 HPF (0-3)
[2023-07-26 13:03] LABS: Urine Culture Reflex No No
[2023-07-26 13:04] LABS: INR-International Normal Ratio 1.1; Prothrombin Time 14.3 sec (12.0-14.7)
[2023-07-26 13:05] LABS: PTT 28.8 sec (22.9-36.1)
[2023-07-26 13:31] LABS: Free T4 (Free Thyroxine) 1.24 ng/dL (0.70-1.48)
[2023-07-26] MEDS ORDERED: Iopamidol-370 76% 500 ML MDV (1 ML CHARGE) ONE (13:40)
[2023-07-26] MEDS ORDERED: Bupivacaine 0.25% HCL 30 ML VIAL ONE (13:51)
[2023-07-26] MEDS ORDERED: EPINEPHrine 1 MG/ML VIAL ONE (13:51)
[2023-07-26] MEDS ORDERED: Succinylcholine 200 MG/10 ml SYRINGE FS ONE ×2 (13:58→14:24)
[2023-07-26] MEDS ORDERED: Dexamethasone 4 mg/ml Vial ONE (13:58)
[2023-07-26] MEDS ORDERED: Rocuronium Bromide 10 MG/ML (10ML VIAL) ONE ×2 (13:58→14:24)
[2023-07-26] MEDS ORDERED: Lidocaine 2% PF 5 ML VIAL ONE (13:58)
[2023-07-26] MEDS ORDERED: Fentanyl 250 MCG/5 ML VIAL ONE (13:59)
[2023-07-26] MEDS ORDERED: PROPOFOL 20 ML ONE (13:59)
[2023-07-26] MEDS ORDERED: Midazolam HCl 2 mg/2 ml Vial ONE (13:59)
[2023-07-26] MEDS ORDERED: Ketamine In 0.9 % NaCl 50 MG/5 ML SYRINGE ONE (14:06)
[2023-07-26] MEDS ORDERED: Sodium Chloride 0.9% 100 ML ONE (14:07)
[2023-07-26] MEDS ORDERED: CEFAZOLIN 2 GM VIAL ONE (14:07)
[2023-07-26] MEDS ORDERED: Bupivacaine HCl 0.5%/Epinephrine 1:200,000/PF 30 ml Vial ONE (14:24)
[2023-07-26] MEDS ORDERED: Lidocaine 1% PF 5 ML VIAL ONE (14:24)
[2023-07-26] MEDS ORDERED: PHENYLEPHRINE-NS 100 MCG/ML 10 ML SYRINGE ONE ×2 (14:24→15:42)
[2023-07-26] MEDS ORDERED: Promethazine HCl 25 MG/ML VIAL IM PRN (17:16)
[2023-07-26] MEDS ORDERED: Ondansetron HCl/PF 4 MG/2 ML Vial IVP PRN (17:16)
[2023-07-26] MEDS ORDERED: Metoclopramide HCl 10 MG/2 ML VIAL ONE (18:00)
[2023-07-26] MEDS ORDERED: HYDROmorphone 0.5 MG/0.5 ML SYRINGE ONE ×3 (18:13→18:36)
[2023-07-26] MEDS: Morphine 2 MG/ML VIAL SLOW IVP PRN ×2 (20:28→22:31)
[2023-07-26] MEDS: Sodium Chloride 0.9% 1,000 ML IV SCH (20:30)
[2023-07-26] MEDS: Acetaminophen 500 MG TAB PO SCH ×2 (20:30→22:08)
[2023-07-26] MEDS ORDERED: hydrALAZINE 20 MG/ML VIAL SLOW IVP PRN (20:32)
[2023-07-26 20:35] VITALS: BMI 31.9
[2023-07-26] MEDS: Isosorbide Mononitrate 20 MG TAB PO SCH (22:06)
[2023-07-26] MEDS: Lisinopril 20 MG TAB PO SCH (22:07)
[2023-07-26] MEDS: hydrOXYzine 25 MG TAB PO SCH (22:07)
[2023-07-26] MEDS: Famotidine/PF 20 mg/2ml Vial SLOW IVP SCH (22:08)
[2023-07-27] MEDS: Morphine 2 MG/ML VIAL SLOW IVP PRN (00:25)
[2023-07-27] MEDS: Acetaminophen/Codeine 30-300mg Tablet PO SCH ×3 (01:20→09:31)
[2023-07-27] MEDS: Sodium Chloride 0.9% 1,000 ML IV SCH ×2 (01:42→05:16)
[2023-07-27] MEDS: Morphine 4 MG/ML VIAL SLOW IVP PRN ×6 (03:34→22:54)
[2023-07-27] MEDS: Levothyroxine Sodium 25 MCG TAB PO SCH (05:12)
[2023-07-27] MEDS: Levothyroxine Sodium 112 MCG TAB PO SCH (05:13)
[2023-07-27 06:24] LABS: #Monocytes 0.7 thou/uL (0.11-0.59); #Neutrophils 13.8 thou/uL (1.40-6.50); %Basophils 0.1 % (0.0-1.0); %Lymphocytes 7.4 % (21.0-51.0); %Monocytes 4.7 % (0.0-10.0); %Neutrophils 87.5 % (42.0-75.0); Hematocrit 41.2 % (36.0-47.0); Hemoglobin 12.9 g/dL (12.0-16.0); Mean Corpuscular HGB CONC 31.3 g/dL (32.0-36.0); Mean Corpuscular Hemoglobin 27.9 pg (27.0-31.0); Mean Platelet Volume 11.6 fL (7.4-10.4); Platelet Count 303 10x3/uL (130-400); RBC Distribution Width 14.7 % (11.5-14.5); Red Blood Cell (RBC) Count 4.63 mill/uL (4.20-5.40); White Blood Cell (WBC) Count 15.8 10x3/uL (4.8-10.8)
[2023-07-27 06:36] LABS: INR-International Normal Ratio 1.1; Prothrombin Time 14.8 sec (12.0-14.7)
[2023-07-27 06:37] LABS: PTT 28.5 sec (22.9-36.1)
[2023-07-27 06:43] LABS: Anion Gap 12 mmol/L (10-20); BUN (Urea Nitrogen) 7 mg/dL (9.8-20.1); Calc. Creatinine Clearance 101 mL/min (70-130); Calcium 8.4 mg/dL (7.8-10.44); Carbon Dioxide 21 mmol/L (23-31); Chloride 109 mmol/L (98-107); Estimated GFR 80; Glucose 127 mg/dL (80-115); Potassium 3.4 mmol/L (3.5-5.1); Sodium 139 mmol/L (136-145)
[2023-07-27] MEDS ORDERED: Ondansetron ODT 4 MG TAB PO PRN (08:00)
[2023-07-27] MEDS ORDERED: Acetaminophen 500 MG TAB PO SCH (09:00)
[2023-07-27] MEDS ORDERED: Levothyroxine Sodium 125 MCG TAB PO SCH (09:00)
[2023-07-27] MEDS ORDERED: Carvedilol 25 MG TAB PO SCH (09:00)
[2023-07-27] MEDS ORDERED: Rosuvastatin 20 MG TAB PO SCH (09:00)
[2023-07-27] MEDS: Famotidine/PF 20 mg/2ml Vial SLOW IVP SCH ×2 (09:29→21:10)
[2023-07-27] MEDS: Lisinopril 20 MG TAB PO SCH ×2 (09:30→21:09)
[2023-07-27] MEDS: LevoFLOXacin 500 mg/D5W 500 MG in Premix 1 BAG IVPB SCH (09:52)
[2023-07-27] MEDS: Isosorbide Mononitrate 20 MG TAB PO SCH ×2 (10:50→21:09)
[2023-07-27] MEDS: Ketorolac Tromethamine 30 MG/ML VIAL IVP SCH ×3 (12:14→22:53)
[2023-07-27] MEDS: Potassium Chloride 20 MEQ in Lactated Ringer's 1,000 ML IV SCH ×2 (13:25→22:16)
[2023-07-27] MEDS ORDERED: Potassium Chloride 20 MEQ in Premix 1 BAG IVPB SCH (14:30)
[2023-07-27] MEDS: Acetaminophen 500 MG TAB PO SCH ×2 (15:13→21:09)
[2023-07-27] MEDS: metroNIDAZOLE 500 MG in Premix 1 BAG IVPB SCH ×2 (15:13→21:10)
[2023-07-27] MEDS: Carvedilol 6.25 MG TAB PO SCH (17:50)
[2023-07-27] MEDS: Ranolazine 500 MG ER.TAB PO SCH (21:09)
[2023-07-27] MEDS: hydrOXYzine 25 MG TAB PO SCH (21:09)
[2023-07-28] MEDS: Potassium Chloride 20 MEQ in Lactated Ringer's 1,000 ML IV SCH ×2 (05:11→17:30)
[2023-07-28] MEDS: Acetaminophen 500 MG TAB PO SCH ×4 (05:11→21:40)
[2023-07-28] MEDS: metroNIDAZOLE 500 MG in Premix 1 BAG IVPB SCH ×3 (05:12→21:39)
[2023-07-28] MEDS: Levothyroxine Sodium 112 MCG TAB PO SCH (05:12)
[2023-07-28] MEDS: Levothyroxine Sodium 25 MCG TAB PO SCH (05:12)
[2023-07-28] MEDS: Ketorolac Tromethamine 30 MG/ML VIAL IVP SCH ×3 (05:50→18:27)
[2023-07-28 06:24] LABS: #Eosinphils 0.1 thou/uL (0.0-0.7); #Monocytes 0.6 thou/uL (0.11-0.59); #Neutrophils 10.4 thou/uL (1.40-6.50); %Basophils 0.2 % (0.0-1.0); %Lymphocytes 11.6 % (21.0-51.0); %Monocytes 4.8 % (0.0-10.0); %Neutrophils 81.8 % (42.0-75.0); Hemoglobin 10.1 g/dL (12.0-16.0); Mean Corpuscular HGB CONC 31.5 g/dL (32.0-36.0); Mean Corpuscular Hemoglobin 28.5 pg (27.0-31.0); Mean Corpuscular Volume 90.4 fl (78.0-98.0); Mean Platelet Volume 11.3 fL (7.4-10.4); Platelet Count 211 10x3/uL (130-400); RBC Distribution Width 14.8 % (11.5-14.5); Red Blood Cell (RBC) Count 3.55 mill/uL (4.20-5.40); White Blood Cell (WBC) Count 12.7 10x3/uL (4.8-10.8)
[2023-07-28 06:25] LABS: Hematocrit 32.1 % (36.0-47.0)
[2023-07-28 06:45] LABS: Anion Gap 12 mmol/L (10-20); BUN (Urea Nitrogen) 14 mg/dL (9.8-20.1); Calc. Creatinine Clearance 86 mL/min (70-130); Calcium 8.4 mg/dL (7.8-10.44); Carbon Dioxide 20 mmol/L (23-31); Chloride 109 mmol/L (98-107); Estimated GFR 66; Glucose 80 mg/dL (80-115); Potassium 3.8 mmol/L (3.5-5.1); Sodium 137 mmol/L (136-145)
[2023-07-28] MEDS: Lisinopril 20 MG TAB PO SCH ×2 (08:47→21:40)
[2023-07-28] MEDS: Famotidine/PF 20 mg/2ml Vial SLOW IVP SCH ×2 (08:48→21:41)
[2023-07-28] MEDS: Carvedilol 6.25 MG TAB PO SCH ×2 (08:48→18:27)
[2023-07-28] MEDS: Ranolazine 500 MG ER.TAB PO SCH ×2 (08:48→21:41)
[2023-07-28] MEDS: Isosorbide Mononitrate 20 MG TAB PO SCH ×2 (08:48→21:39)
[2023-07-28] MEDS: LevoFLOXacin 500 mg/D5W 500 MG in Premix 1 BAG IVPB SCH (10:15)
[2023-07-28] MEDS: Morphine 4 MG/ML VIAL SLOW IVP PRN ×2 (15:12→21:42)
[2023-07-28] MEDS: hydrOXYzine 25 MG TAB PO SCH (21:39)
[2023-07-29] MEDS: Ketorolac Tromethamine 30 MG/ML VIAL IVP SCH ×5 (01:44→23:34)
[2023-07-29] MEDS: Potassium Chloride 20 MEQ in Lactated Ringer's 1,000 ML IV SCH ×3 (01:46→13:43)
[2023-07-29] MEDS: Levothyroxine Sodium 112 MCG TAB PO SCH (05:19)
[2023-07-29] MEDS: Acetaminophen 500 MG TAB PO SCH ×4 (05:20→21:23)
[2023-07-29] MEDS: Levothyroxine Sodium 25 MCG TAB PO SCH (05:20)
[2023-07-29] MEDS: Morphine 4 MG/ML VIAL SLOW IVP PRN ×2 (05:21→11:58)
[2023-07-29] MEDS: metroNIDAZOLE 500 MG in Premix 1 BAG IVPB SCH ×3 (05:21→21:27)
[2023-07-29] MEDS ORDERED: tiZANidine HCl 4 MG TAB PO PRN (08:53)
[2023-07-29] MEDS: LevoFLOXacin 500 mg/D5W 500 MG in Premix 1 BAG IVPB SCH (11:38)
[2023-07-29] MEDS: Isosorbide Mononitrate 20 MG TAB PO SCH ×2 (11:39→21:24)
[2023-07-29] MEDS: Lisinopril 20 MG TAB PO SCH ×2 (11:40→21:25)
[2023-07-29] MEDS: Ranolazine 500 MG ER.TAB PO SCH ×2 (11:42→21:24)
[2023-07-29] MEDS: Carvedilol 25 MG TAB PO SCH ×4 (11:42→18:39)
[2023-07-29] MEDS ORDERED: Carvedilol 25 MG TAB PO SCH (17:00)
[2023-07-29] MEDS: Carvedilol 6.25 MG TAB PO SCH (18:52)
[2023-07-29] MEDS ORDERED: Clopidogrel Bisulfate 75 MG TAB PO SCH (21:00)
[2023-07-29] MEDS ORDERED: Aspirin 81 mg Enteric Coated Tablet PO SCH (21:00)
[2023-07-29] MEDS: hydrOXYzine 25 MG TAB PO SCH (21:23)
[2023-07-30] MEDS: Potassium Chloride 20 MEQ in Lactated Ringer's 1,000 ML IV SCH ×2 (00:05→09:46)
[2023-07-30] MEDS: Acetaminophen 500 MG TAB PO SCH ×2 (04:15→09:47)
[2023-07-30] MEDS: Levothyroxine Sodium 25 MCG TAB PO SCH (06:11)
[2023-07-30] MEDS: Ketorolac Tromethamine 30 MG/ML VIAL IVP SCH (06:11)
[2023-07-30] MEDS: Levothyroxine Sodium 112 MCG TAB PO SCH (06:11)
[2023-07-30] MEDS: metroNIDAZOLE 500 MG in Premix 1 BAG IVPB SCH (06:12)
[2023-07-30] MEDS ORDERED: Carvedilol 6.25 MG TAB PO SCH (08:00)
[2023-07-30] MEDS: LevoFLOXacin 500 mg/D5W 500 MG in Premix 1 BAG IVPB SCH (09:43)
[2023-07-30] MEDS: Isosorbide Mononitrate 20 MG TAB PO SCH (09:43)
[2023-07-30] MEDS: Ranolazine 500 MG ER.TAB PO SCH (09:44)
[2023-07-30] MEDS: Lisinopril 20 MG TAB PO SCH (09:45)
[2023-07-30 17:01] VITALS: BP 175/85; TEMP 98.6
== END 2023-07-30 18:03 | disposition home or self-care (01) | DRG 337 ==
LOC: ERS 08:23 → 2NO 13:24 → SURG A 19:56
PROVIDERS: ADMIT Emergency Medicine; ATTEND Emergency Medicine
PROC: 0DNU0ZZ Release Omentum, Open Approach (ICD-10-PCS; principal; 2023-07-26)
PROC: 0DN80ZZ Release Small Intestine, Open Approach (ICD-10-PCS; 2023-07-26)
PROC: 3E033XZ Introduction of Vasopressor into Peripheral Vein, Percutaneous Approach (ICD-10-PCS; 2023-07-26)
DX: K56.609 Unspecified intestinal obstruction, unspecified as to partial versus complete obstruction (principal); K56.2 Volvulus; E03.9 Hypothyroidism, unspecified; I10 Essential (primary) hypertension; I25.10 Atherosclerotic heart disease of native coronary artery without angina pectoris; I25.2 Old myocardial infarction; E78.5 Hyperlipidemia, unspecified; G47.00 Insomnia, unspecified; E11.42 Type 2 diabetes mellitus with diabetic polyneuropathy; E66.9 Obesity, unspecified; E03.8 Other specified hypothyroidism; L40.50 Arthropathic psoriasis, unspecified; Z79.899 Other long term (current) drug therapy; Z79.82 Long term (current) use of aspirin; Z79.890 Hormone replacement therapy; Z95.1 Presence of aortocoronary bypass graft; Z90.49 Acquired absence of other specified parts of digestive tract; Z90.710 Acquired absence of both cervix and uterus; Z98.84 Bariatric surgery status; Z88.0 Allergy status to penicillin; Z88.1 Allergy status to other antibiotic agents; Z88.2 Allergy status to sulfonamides; Z68.32 Body mass index [BMI] 32.0-32.9, adult
CPT/HCPCS: 36415; 74177; 80048; 80053; 81001; 83605; 83690; 83880; 84439; 84443; 84484; 85025; 85610; 85730; 86850; 86900; 86901; 93005; 93306; 96361; 96374; 96375; 96376; A4314; J0171; J0360; J1100; J1170; J1650; J1885; J1956; J2001; J2250; J2270; J2272; J2405; J2704; J2765; J3010; J3480; J3490; J7050; J7120; Q9967; S0020; S0028

== ENCOUNTER 2023-10-04 09:14 | Outpatient (CLI) | payer BC ==
[2023-10-04] MEDS ORDERED: Iopamidol 370 76% 100 ML VIAL ONE (14:52)
== END 2023-10-04 09:15 | disposition home or self-care (01) ==
LOC: CT 09:14
PROVIDERS: ATTEND Student in an Organized Health Care Education/Training Program
DX: R10.30 Lower abdominal pain, unspecified (principal); K31.89 Other diseases of stomach and duodenum; Z87.19 Personal history of other diseases of the digestive system; Z98.890 Other specified postprocedural states
CPT/HCPCS: 74178; 82565

== ENCOUNTER 2024-07-04 00:34 | Inpatient (IN) | payer BC, MEDICARE, SELFPAY ==
[2024-07-04 01:15] LABS: #Basophils Less than 0.03 10x3/uL (0.0-0.2); %Basophils 0.2 % (0.0-1.0); %Eosinophils 1.5 % (0.0-10.0); %Lymphocytes 20.7 % (21.0-51.0); %Monocytes 2.9 % (0.0-10.0); %Neutrophils 74.5 % (42.0-75.0); Hematocrit 41.9 % (36.0-47.0); Hemoglobin 13.6 g/dL (12.0-16.0); Mean Corpuscular HGB CONC 32.5 g/dL (32.0-36.0); Mean Corpuscular Hemoglobin 27.9 pg (27.0-31.0); Mean Corpuscular Volume 85.9 fL (78.0-98.0); Mean Platelet Volume 11.1 fL (7.4-10.4); Platelet Count 323 10x3/uL (130-400); RBC Distribution Width 16.8 % (11.5-14.5); Red Blood Cell (RBC) Count 4.88 mill/uL (4.20-5.40)
[2024-07-04] MEDS ORDERED: Ondansetron PF 4 MG/2 ML Vial ONE ×2 (01:15→02:57)
[2024-07-04] MEDS ORDERED: Morphine 4 MG/ML VIAL ONE ×2 (01:15→02:57)
[2024-07-04 01:32] LABS: Troponin I Less than 0.010 ng/mL (< 0.028)
[2024-07-04 01:55] LABS: ALT (SGPT) 13 U/L (8-55); AST (SGOT) 19 U/L (5-34); Albumin 4.3 g/dL (3.4-4.8); Alkaline Phosphatase 113 U/L (40-110); Anion Gap 17 mmol/L (10-20); BUN (Urea Nitrogen) 14 mg/dL (9.8-20.1); Bilirubin, Total 0.4 mg/dL (0.2-1.2); Calc. Creatinine Clearance 0 mL/min (70-130); Calcium 9.8 mg/dL (7.8-10.44); Carbon Dioxide 18 mmol/L (23-31); Chloride 108 mmol/L (98-107); Estimated GFR 66; Globulin 3.7 g/dL (2.4-3.5); Glucose 155 mg/dL (80-115); Lipase 17 U/L (8-78); Potassium 4.1 mmol/L (3.5-5.1); Sodium 139 mmol/L (136-145)
[2024-07-04] MEDS ORDERED: Acetaminophen 650 MG Suppository PR PRN (03:46)
[2024-07-04] MEDS ORDERED: hydrALAZINE 20 MG/ML VIAL SLOW IVP PRN (03:49)
[2024-07-04 04:27] VITALS: BMI 31.1
[2024-07-04] MEDS ORDERED: Levothyroxine Sodium 112 MCG TAB PO SCH (06:00)
[2024-07-04] MEDS: Levothyroxine Sodium 25 MCG TAB PO SCH (06:41)
[2024-07-04] MEDS: Levothyroxine Sodium 112 MCG TAB PO SCH (06:42)
[2024-07-04] MEDS ORDERED: Ketorolac Tromethamine 60 MG/2 ML VIAL IM PRN (08:04)
[2024-07-04] MEDS: Acetaminophen 500 MG TAB PO PRN (08:53)
[2024-07-04] MEDS: Amlodipine 5 MG TAB PO SCH (08:54)
[2024-07-04] MEDS: Enoxaparin 40 MG (0.4 mL) SYRINGE SC SCH (08:55)
[2024-07-04] MEDS: Hydrochlorothiazide 25 MG TAB PO SCH (08:55)
[2024-07-04] MEDS: Lisinopril 20 MG TAB PO SCH (08:55)
[2024-07-04] MEDS: Pantoprazole 40 MG VIAL IVP SCH (08:56)
[2024-07-04] MEDS: Ketorolac Tromethamine 30 MG (1 mL) VIAL IM SCH (10:07)
[2024-07-04] MEDS: Ketorolac Tromethamine 60 MG/2 ML VIAL IM SCH (10:18)
[2024-07-04] MEDS: Lactated Ringer's 1,000 ML IV SCH (10:23)
[2024-07-04] MEDS ORDERED: Iopamidol 370 76% 100 ML VIAL ONE (12:39)
[2024-07-04] MEDS: hydrOXYzine 25 MG TAB PO SCH (20:59)
[2024-07-04] MEDS: Rosuvastatin 20 MG TAB PO SCH (20:59)
[2024-07-04] MEDS: Isosorbide Mononitrate 20 MG TAB PO SCH (20:59)
[2024-07-04] MEDS: Aspirin 81 mg Enteric Coated Tablet PO SCH (20:59)
[2024-07-04] MEDS ORDERED: Clopidogrel Bisulfate 75 MG TAB PO SCH (21:00)
[2024-07-05 05:22] LABS: #Basophils 0.03 10x3/uL (0.0-0.2); %Basophils 0.3 % (0.0-1.0); %Eosinophils 3.6 % (0.0-10.0); %Lymphocytes 23.7 % (21.0-51.0); %Monocytes 6.5 % (0.0-10.0); %Neutrophils 65.6 % (42.0-75.0); Hemoglobin 11.3 g/dL (12.0-16.0); Mean Corpuscular HGB CONC 31.4 g/dL (32.0-36.0); Mean Corpuscular Hemoglobin 27.6 pg (27.0-31.0); Mean Platelet Volume 10.8 fL (7.4-10.4); Platelet Count 299 10x3/uL (130-400); RBC Distribution Width 16.9 % (11.5-14.5); Red Blood Cell (RBC) Count 4.09 mill/uL (4.20-5.40)
[2024-07-05 05:43] LABS: Phosphorus 4.1 mg/dL (2.3-4.7)
[2024-07-05 05:50] LABS: Anion Gap 14 mmol/L (10-20); BUN (Urea Nitrogen) 21 mg/dL (9.8-20.1); Calc. Creatinine Clearance 70 mL/min (70-130); Calcium 8.8 mg/dL (7.8-10.44); Carbon Dioxide 25 mmol/L (23-31); Chloride 107 mmol/L (98-107); Estimated GFR 56; Glucose 100 mg/dL (80-115); Magnesium 2.1 mg/dL (1.6-2.6); Potassium 4.6 mmol/L (3.5-5.1); Sodium 141 mmol/L (136-145)
[2024-07-05] MEDS: Sodium Chloride 0.9% 1,000 ML IV SCH (05:58)
[2024-07-05] MEDS: Carvedilol 3.125 MG TAB PO SCH (09:18)
[2024-07-05] MEDS: Ranolazine ER 500 MG TAB PO SCH (09:20)
[2024-07-05] MEDS: Phenol 177 ML BOT PO PRN (17:52)
[2024-07-05] MEDS: Pseudoephedrine HCl 30 MG TAB PO PRN (17:56)
[2024-07-05] MEDS: Clopidogrel Bisulfate 75 MG TAB PO SCH (20:56)
[2024-07-06 04:33] LABS: #Basophils Less than 0.03 10x3/uL (0.0-0.2); %Basophils 0.3 % (0.0-1.0); %Eosinophils 2.2 % (0.0-10.0); %Monocytes 7.3 % (0.0-10.0); %Neutrophils 66.9 % (42.0-75.0); Hematocrit 32.3 % (36.0-47.0); Hemoglobin 10.4 g/dL (12.0-16.0); Mean Corpuscular HGB CONC 32.2 g/dL (32.0-36.0); Mean Corpuscular Hemoglobin 27.6 pg (27.0-31.0); Mean Corpuscular Volume 85.7 fL (78.0-98.0); Mean Platelet Volume 11.4 fL (7.4-10.4); Platelet Count 252 10x3/uL (130-400); RBC Distribution Width 16.2 % (11.5-14.5); Red Blood Cell (RBC) Count 3.77 mill/uL (4.20-5.40)
[2024-07-06 05:18] LABS: Anion Gap 11 mmol/L (10-20); BUN (Urea Nitrogen) 9 mg/dL (9.8-20.1); Calc. Creatinine Clearance 109 mL/min (70-130); Calcium 8.5 mg/dL (7.8-10.44); Carbon Dioxide 22 mmol/L (23-31); Chloride 109 mmol/L (98-107); Estimated GFR 94; Glucose 102 mg/dL (80-115); Potassium 3.6 mmol/L (3.5-5.1); Sodium 138 mmol/L (136-145)
[2024-07-06] MEDS: Benzocaine/Menthol 1 LOZ LOZ PO PRN (07:55)
[2024-07-06] MEDS ORDERED: MD-Gastroview 120 ML BOT ONE (07:58)
[2024-07-06] MEDS: Sodium Chloride 0.9% 1,000 ML IV SCH (09:02)
[2024-07-06] MEDS: Ondansetron PF 4 MG/2 ML Vial IVP PRN (09:04)
[2024-07-06] MEDS: Promethazine HCl 12.5 MG in Sodium Chloride 0.9% 50 ML IVPB PRN (10:44)
[2024-07-06] MEDS ORDERED: Promethazine HCl 12.5 MG in Sodium Chloride 0.9% 100 ML IVPB PRN (22:08)
[2024-07-06] MEDS: Promethazine HCl 12.5 MG, Admixture Fee 1 EACH in Sodium Chloride 0.9% 100 ML IVPB PRN (23:35)
[2024-07-07 05:03] LABS: #Basophils 0.04 10x3/uL (0.0-0.2); %Basophils 0.4 % (0.0-1.0); %Eosinophils 1.1 % (0.0-10.0); %Lymphocytes 22.4 % (21.0-51.0); %Monocytes 7.9 % (0.0-10.0); %Neutrophils 67.8 % (42.0-75.0); Hematocrit 33.5 % (36.0-47.0); Mean Corpuscular HGB CONC 32.8 g/dL (32.0-36.0); Mean Corpuscular Hemoglobin 28.6 pg (27.0-31.0); Mean Corpuscular Volume 87.2 fL (78.0-98.0); Mean Platelet Volume 10.7 fL (7.4-10.4); Platelet Count 249 10x3/uL (130-400); RBC Distribution Width 16.3 % (11.5-14.5); Red Blood Cell (RBC) Count 3.84 mill/uL (4.20-5.40)
[2024-07-07 05:27] LABS: Anion Gap 12 mmol/L (10-20); BUN (Urea Nitrogen) 4 mg/dL (9.8-20.1); Calc. Creatinine Clearance 105 mL/min (70-130); Calcium 8.7 mg/dL (7.8-10.44); Carbon Dioxide 20 mmol/L (23-31); Chloride 113 mmol/L (98-107); Estimated GFR 90; Glucose 102 mg/dL (80-115); Potassium 3.2 mmol/L (3.5-5.1); Sodium 142 mmol/L (136-145)
[2024-07-07] MEDS: Potassium Chloride 20 MEQ in Premix 1 BAG IVPB SCH (08:52)
[2024-07-07] MEDS ORDERED: Amlodipine 10 MG TAB PO SCH (09:00)
[2024-07-07] MEDS: Amlodipine 5 MG TAB PO SCH (09:01)
[2024-07-07] MEDS: Pantoprazole DR 40 MG TAB PO SCH (09:03)
[2024-07-08 05:34] LABS: Anion Gap 13 mmol/L (10-20); BUN (Urea Nitrogen) 6 mg/dL (9.8-20.1); Calc. Creatinine Clearance 96 mL/min (70-130); Calcium 9.1 mg/dL (7.8-10.44); Carbon Dioxide 23 mmol/L (23-31); Chloride 109 mmol/L (98-107); Estimated GFR 81; Glucose 102 mg/dL (80-115); Magnesium 1.9 mg/dL (1.6-2.6); Potassium 3.5 mmol/L (3.5-5.1); Sodium 141 mmol/L (136-145)
[2024-07-08 05:36] LABS: Phosphorus 3.9 mg/dL (2.3-4.7)
[2024-07-08 07:41] VITALS: TEMP 98.4
[2024-07-08 11:25] VITALS: BP 143/81
== END 2024-07-08 11:57 | disposition home or self-care (01) | DRG 390 ==
LOC: ERS 00:34 → SURG B 03:22
PROVIDERS: ADMIT Student in an Organized Health Care Education/Training Program; ATTEND Student in an Organized Health Care Education/Training Program
DX: K56.50 Intestinal adhesions [bands], unspecified as to partial versus complete obstruction (principal); I25.2 Old myocardial infarction; I25.10 Atherosclerotic heart disease of native coronary artery without angina pectoris; E03.9 Hypothyroidism, unspecified; I10 Essential (primary) hypertension; E11.9 Type 2 diabetes mellitus without complications; E78.5 Hyperlipidemia, unspecified; Z90.710 Acquired absence of both cervix and uterus; Z88.2 Allergy status to sulfonamides; Z88.1 Allergy status to other antibiotic agents; Z88.0 Allergy status to penicillin; E66.9 Obesity, unspecified; Z68.31 Body mass index [BMI] 31.0-31.9, adult; Z79.82 Long term (current) use of aspirin; Z79.899 Other long term (current) drug therapy; L40.50 Arthropathic psoriasis, unspecified; E87.6 Hypokalemia
CPT/HCPCS: 36415; 74018; 74177; 74250; 80048; 80053; 83605; 83690; 83735; 84100; 84484; 85025; 93005; 96374; 96375; 96376; J1650; J1885; J2272; J2405; J2470; J2550; J3480; J7030; J7120; Q9963; Q9967